=== PATIENT | female | born 1955 | race Caucasian/White ===

== ENCOUNTER → 2017-01-05 | Outpatient (CLI) | payer MEDICAID ==
[~2017-01-05] MED LIST: ACET50TA PO; ASPI81TA90 PO; ATIV0.5T3 PO; CALC-205 PO; CALC600T PO; CENTTAB47 PO; FISH1200 PO; FLUC10TA PO; GINKTAB PO; LEVO750T PO; LOPE2CA PO; NEUP480I2 SC; OMEP40CA2 PO; OXYB5TAB80 PO; PROC5TA PO; Q10 PO; VENL37TA PO; VITA10006 PO; VITA200T4 PO; VITATAB11 PO; ZOFR8TAB PO
[2017-01-05 09:52] LABS: ALBUMIN 3.8 GM/DL (3.2-5.2); ALBUMIN/GLOBULIN RATIO 1.06 (1.00-1.93); ALKALINE PHOSPHATASE 121 U/L (45-117); ALT/SGPT 24 U/L (12-78); ANION GAP 8 MEQ/L (8-16); AST/SGOT 19 U/L (15-37); BILIRUBIN,TOTAL 0.6 MG/DL (0.2-1.0); BLOOD UREA NITROGEN 15 MG/DL (7-18); CALCIUM LEVEL 8.9 MG/DL (8.8-10.2); CARBON DIOXIDE LEVEL 30 MEQ/L (21-32); CHLORIDE LEVEL 103 MEQ/L (98-107); CREATININE FOR GFR 0.99 MG/DL (0.55-1.02); FREE T4 1.28 NG/DL (0.76-1.46); GAMMA GLUTAMYLTRANSPEPTIDASE 13 U/L (5-55); GLOMERULAR FILTRATION RATE > 60.0 (>45); GLUCOSE, FASTING 83 MG/DL (80-110); POTASSIUM SERUM 4.2 MEQ/L (3.5-5.1); SODIUM LEVEL 141 MEQ/L (136-145); TOTAL PROTEIN 7.4 GM/DL (6.4-8.2)
--- NOTE | 2017-01-05 10:23 | REP ---
RIGHT UPPER QUADRANT ULTRASOUND: Real-time sonographic evaluation of the right upper quadrant performed. The gallbladder demonstrates no evidence of intraluminal sludge or calculi, wall thickening or pericholecystic fluid. There is no intrahepatic or extrahepatic biliary dilatation. The common hepatic duct measures 3 mm. The common bile duct is not well seen due to overlying bowel gas. Liver and pancreas demonstrate homogeneous echotexture with no gross mass. Right kidney demonstrates no hydronephrosis or nephrolithiasis with normal size at 9.7 cm in length. Abdominal aorta could not be visualized. IMPRESSION: Essentially negative right upper quadrant ultrasound, exam somewhat limited due to bowel gas. Signed by Romario Minor MD 01/05/2017 04:37 P
--- NOTE | 2017-01-05 10:52 | REP ---
ULTRASOUND THYROID: Real-time sonographic evaluation of the thyroid performed and compared to prior study of 12/20/2007. Right lobe measures 4.6 x 1.8 x 1.4 cm and left lobe 4.8 x 1.5 x 1.5 cm. Echotexture is diffusely heterogeneous. There are multiple variable sized nodules bilaterally. Largest on the right is in the lower third and there are two adjacent nodules which are complex cystic nodules, measuring 1.4 x 0.9 x 1.0 cm and 1.4 x 1.1 x 1.1 cm. In the lower left lobe, there is a complex cystic nodule measuring 1.2 x 0.9 x 2.5 cm. There is an increased cystic appearance compared to the prior study. IMPRESSION: Multiple bilateral nodules as discussed in detail above. The largest nodules are inferiorly located and have a complex cystic appearance. Signed by Romario Minor MD 01/05/2017 04:37 P
== END ==
LOC: M LAB 07:14 → M RAD 07:14
PROVIDERS: ATTEND Student in an Organized Health Care Education/Training Program
DX: R10.11 Right upper quadrant pain (principal); E04.2 Nontoxic multinodular goiter

== ENCOUNTER → 2017-02-19 | Outpatient (CLI) | payer MEDICAID ==
--- NOTE | 2017-02-19 11:58 | REPMRS ---
Patient History The patient states she had a clinical breast exam in 2015.The patient states she had a clinical breast exam in 2015.Patient is postmenopausal and has history of cancer in the right breast at age 57. Family history of unknown cancer in father at age 50 or over and breast cancer in mother at age 50 or over. Malignant localization of breast nodule of the right breast, September 19, 2012. Digital Mammo Screening Bilat: February 19, 2017 - Exam #: [id number] Bilateral CC and MLO view(s) were taken. Technologist: Katiana Hazel, Technologist Prior study comparison: February 10, 2016, bilateral digital mammo screening bilat performed at [facility]. February 08, 2015, bilateral digital mammo screening bilat performed at [facility]. FINDINGS: There are scattered fibroglandular densities. There is a fairly symmetric fibroglandular pattern in both breasts. There has been no interval development of masses, areas of architectural distortion or clusters of microcalcifications typical of malignancy. ASSESSMENT: BI-RADS/ACR category 2 mammogram. Benign finding(s). Recommendation Routine screening mammogram of both breasts in 1 year (for women over age 40). This mammogram was interpreted with the aid of an FDA-approved computer-aided dectection system. Electronically Signed By: Romario Minor MD 02/19/17 0551
== END ==
LOC: M RAD 10:36
PROVIDERS: ATTEND Internal Medicine Medical Oncology
DX: Z12.31 Encounter for screening mammogram for malignant neoplasm of breast (principal)

== ENCOUNTER → 2017-05-30 | Outpatient (CLI) | payer MEDICAID ==
[~2017-05-30] MED LIST changes: +ASPI1TAB PO; +CALC600T57 PO; +CRAN600T PO; +MULT1TAB10 PO; +OMEP20CA3 PO; +OXYB5TAB10 PO; +[UNRECOGNIZED DRUG - OTHER] PO
--- NOTE | 2017-05-31 09:37 | DEXA ---
AP SPINE L1 - L4 1.353 1.3 2.6 LT FEMUR TOTAL 0.817 -1.5 -0.5 RT FEMUR TOTAL 0.859 -1.2 -0.2 TOTAL BODY TOTAL OTHER DUAL FEMUR FRAX* ASSESSMENT Risk factors: Not performed. 10 year probability of fracture Major osteoporotic fracture % Hip fracture % COMMENTS: Normal bone densitometry of the spine. There is low bone density of the hips. The decreased density of the spine does not represent a significant change. The decreased density of the left hip does represent a significant change. The increased density of the right hip does represent a significant change. The density of the spine has increased 1.3% since the initial exam on 05/2013. The spine density has decreased 0.3% since the most recent exam on 05/2015. The density of the left hip has decreased 3.7% since the initial exam on 05/2013. The density of the left hip has decreased 2.9% since the most recent exam on 2014. The density of the right hip has decreased 0.3% since the initial exam on 2012. The density of the right hip has increased 4.4% since the most recent exam on 2014. FOLLOW-UP: Recommendation for the next bone density exam: 2 years. CHADD
== END ==
LOC: M WHC 09:59
PROVIDERS: ATTEND Internal Medicine Medical Oncology
DX: M85.88 Other specified disorders of bone density and structure, other site (principal); M85.851 Other specified disorders of bone density and structure, right thigh; M85.852 Other specified disorders of bone density and structure, left thigh; Z85.3 Personal history of malignant neoplasm of breast

== ENCOUNTER → 2017-06-08 | Outpatient (REF) | payer MEDICAID ==
[2017-06-08 16:40] LABS: MICROSCOPIC INDICATED? MAN YES (NO)
[2017-06-08 17:14] LABS: BACTERIA, URINE SMALL AMOUNT; HYALINE CAST, URINE NONE SEEN /lpf (0-1); MICROSCOPIC EXAM PERFORMED; SQUAMOUS EPITHELIAL CELL URINE SMALL AMOUNT /hpf (SMALL AMT); WBC, URINE 20-30 /hpf (0-3)
== END ==
LOC: M SFHCPLAZ 16:30
PROVIDERS: ATTEND Obstetrics & Gynecology
DX: N39.0 Urinary tract infection, site not specified (principal)

== ENCOUNTER → 2017-06-11 | Outpatient (CLI) | payer MEDICAID ==
--- NOTE | 2017-06-11 17:06 | REP ---
Right humerus two views : There is no fracture or dislocation. Mineralization and joint spaces are normal. There are no calcifications or foreign bodies. Impression: Negative right humerus . Signed by Romario Higgins MD 06/11/2017 04:58 P
--- NOTE | 2017-06-11 17:12 | REP ---
Right shoulder series: Three views. History: Atraumatic right arm numbness. Findings: The right glenohumeral and acromioclavicular joints are normally aligned. There is subcortical cyst formation in the humeral head. Minimal AC joint hypertrophy is seen. Periarticular soft tissues are unremarkable. No bony destructive lesion is seen. Impression: Minimal degenerative and osteoarthritic changes. Signed by Bartolo Vargas MD 06/11/2017 08:01 P
== END ==
LOC: M RAD 16:26
PROVIDERS: ATTEND Internal Medicine Medical Oncology
DX: R20.9 Unspecified disturbances of skin sensation (principal)

== ENCOUNTER → 2017-08-16 | Outpatient (REF) | payer MEDICAID | LOC: M SFHCWAGY 14:19 | PROVIDERS: ATTEND Nurse Practitioner Family | DX: Z12.4 Encounter for screening for malignant neoplasm of cervix (principal) ==

== ENCOUNTER → 2017-08-16 | Outpatient (CLI) | payer MEDICAID ==
--- NOTE | 2017-08-16 16:54 | REP ---
Ultrasonography of the soft tissues near a hernia scar in the region of the pubic symphysis to the right of midline. The patient complains of a tender to 11/14 year mass just under the area of scar. By ultrasound. There is no soft tissue mass or focal fluid collection. To lymph nodes are noted in the soft tissues near the surgical scar, 1. Fluid node measures 0.7 x 0.6 x 0.4 cm. The other lymph node measures 1.3 x 0.7 x 0.4 cm. These lymph nodes are normal size. Impression: Two lymph nodes are identified in relation to the hernia scar. There is no mass, cyst or fluid collection. Signed by Romario Higgins MD 08/16/2017 04:45 P
== END ==
LOC: M WHC 14:20
PROVIDERS: ATTEND Nurse Practitioner Family
DX: R19.03 Right lower quadrant abdominal swelling, mass and lump (principal)

== ENCOUNTER → 2017-10-02 | Outpatient (REF) | payer MEDICAID ==
[2017-10-02 13:36] LABS: APPEARANCE, URINE HAZY (CLEAR); BACTERIA, URINE AUTO NEGATIVE (NEGATIVE); BILIRUBIN, URINE AUTO NEGATIVE (NEGATIVE); BLOOD, URINE BLOOD NEGATIVE (NEGATIVE); COLOR, URINE YELLOW (YELLOW); GLUCOSE, URINE (UA) AUTO NEGATIVE (NEGATIVE); KETONE, URINE AUTO NEGATIVE (NEGATIVE); LEUKOCYTE ESTERASE, URINE AUTO 2+ (NEGATIVE); NITRITE, URINE AUTO NEGATIVE (NEGATIVE); PROTEIN, URINE AUTO NEGATIVE (NEGATIVE); RBC, URINE AUTO 1 /HPF (0-3); SPECIFIC GRAVITY URINE AUTO 1.019 (1.002-1.035); SQUAMOUS EPITHELIAL CELL UR AU 1 /HPF (0-6); UROBILINOGEN, URINE AUTO 0.2 mg/dL (0.0-2.0); WBC, URINE AUTO 2 /HPF (0-3)
== END ==
LOC: M SMT 12:55
DX: R39.15 Urgency of urination (principal)

== ENCOUNTER → 2017-10-04 | Outpatient (CLI) | payer MEDICAID | LOC: M SMT 09:47 | DX: N39.46 Mixed incontinence (principal) | CPT/HCPCS: 76770 ==

== ENCOUNTER → 2018-02-20 | Outpatient (CLI) | payer MEDICAID | LOC: M WHC 11:34 | DX: Z12.31 Encounter for screening mammogram for malignant neoplasm of breast (principal) | CPT/HCPCS: 77067 ==

== ENCOUNTER → 2018-03-25 | Outpatient (CLI) | payer MEDICAID ==
[~2018-03-25] MED LIST changes: -ACET50TA PO; -ASPI1TAB PO; -ASPI81TA90 PO; -ATIV0.5T3 PO; -CALC-205 PO; -CALC600T PO; -CALC600T57 PO; -CENTTAB47 PO; -CRAN600T PO; -FISH1200 PO; -FLUC10TA PO; -GINKTAB PO; -LEVO750T PO; +LIDOCAINE 1% MDV 20ML VIAL As Ordered; -LOPE2CA PO; -MULT1TAB10 PO; -NEUP480I2 SC; -OMEP20CA3 PO; -OMEP40CA2 PO; -OXYB5TAB10 PO; -OXYB5TAB80 PO; -PROC5TA PO; -Q10 PO; -VENL37TA PO; -VITA10006 PO; -VITA200T4 PO; -VITATAB11 PO; -ZOFR8TAB PO; -[UNRECOGNIZED DRUG - OTHER] PO
== END ==
LOC: M RADPRO 12:08
DX: E04.2 Nontoxic multinodular goiter (principal); Z79.82 Long term (current) use of aspirin; Z79.899 Other long term (current) drug therapy
CPT/HCPCS: 10022

== ENCOUNTER → 2018-06-14 | Outpatient (CLI) | payer MEDICAID | LOC: M RAD 12:15 | DX: M21.612 Bunion of left foot (principal); M77.32 Calcaneal spur, left foot; M19.072 Primary osteoarthritis, left ankle and foot ==

== ENCOUNTER → 2018-07-19 | Outpatient (CLI) | payer MEDICAID | LOC: M RAD 10:52 | DX: Z12.2 Encounter for screening for malignant neoplasm of respiratory organs (principal); Z87.891 Personal history of nicotine dependence | CPT/HCPCS: G0297 ==

== ENCOUNTER → 2018-07-22 | Outpatient (CLI) | payer MEDICAID | LOC: M RAD 16:44 | DX: M51.36 Other intervertebral disc degeneration, lumbar region (principal); M19.012 Primary osteoarthritis, left shoulder; M54.5 Low back pain | CPT/HCPCS: 72072 ==

== ENCOUNTER → 2018-12-23 | Outpatient (CLI) | payer MEDICAID ==
[~2018-12-23] MED LIST changes: +ANAS1TAB2 PO; +ASPI81TA26 PO; +ASPI81TA90 PO; +ATIV0.5T3 PO; +CALC-205 PO; +CALC600T PO; +CALC600T57 PO; +CENTTAB47 PO; +CRAN600T PO; +FISH1200 PO; +FLUC10TA PO; +GINKTAB PO; +LEVO750T PO; -LIDOCAINE 1% MDV 20ML VIAL As Ordered; +LOPE2CA PO; +MAGN400C PO; +MAPA500T17 PO; +MULT1TAB10 PO; +NEUP480I2 SC; +OMEP20CA3 PO; +OMEP40CA2 PO; +ONDA-227 PO; +OXYB5TAB10 PO; +OXYB5TAB80 PO; +PROC5TA PO; +Q10 PO; +VENL37TA PO; +VITA10006 PO; +VITA200T4 PO; +VITATAB11 PO; +[UNRECOGNIZED DRUG - OTHER] PO
[2018-12-23 13:58] LABS: FREE T4 1.21 NG/DL (0.76-1.46); THYROID STIMULATING HORMONE 1.03 uIU/ML (0.358-3.740)
== END ==
LOC: M LAB 12:50
PROVIDERS: ATTEND Obstetrics & Gynecology
DX: E04.2 Nontoxic multinodular goiter (principal)

== ENCOUNTER → 2019-02-20 | Outpatient (CLI) | payer MEDICAID ==
--- NOTE | 2019-02-20 13:42 | REPMRS ---
Patient History The patient states she had a clinical breast exam in 02/2019. Patient is postmenopausal, has history of cancer in the right breast at age 57, had previous chest radiation therapy at age 57, and had previous chemotherapy at age 57. Family history of breast cancer at age 68 in mother. Malignant localization of breast nodule of the right breast, September 19, 2012. Taking tamoxifen for 6 years. Digital Woman Screen Mammo: February 20, 2019 - Exam #: [id number] Bilateral CC and MLO view(s) were taken. Technologist: Linda Quinteros, Technologist Prior study comparison: February 20, 2018, bilateral digital woman screen mammo performed at [facility]. February 19, 2017, bilateral digital mammo screening bilat, performed at [facility]. February 10, 2016, bilateral digital mammo screening bilat, performed at [facility]. FINDINGS: There are scattered fibroglandular densities. Stable well-circumscribed 5 mm nodule in the upper outer quadrant on the left unchanged from the 08/29/2017 prior study. There are stable post treatment changes in the right breast. There has been no change in the appearance of the mammogram from the prior studies. There is a mild amount of scattered fibroglandular density which is fairly symmetric. There is no interval development of dominant mass, architectural distortion, or clustered microcalcification suggestive of malignancy. 3-D tomosynthesis shows no additional findings. Assessment: BI-RADS/ACR category 2 mammogram. Benign Findings. Recommendation Routine screening mammogram of both breasts in 1 year (for women over age 40). This mammogram was interpreted with the aid of an FDA-approved computer-aided dectection system. Electronically Signed By: Jose A Vargas MD 02/20/19 [id number]
== END ==
LOC: M WHC 11:20
PROVIDERS: ATTEND Nurse Practitioner Family
DX: Z12.31 Encounter for screening mammogram for malignant neoplasm of breast (principal)

== ENCOUNTER → 2019-02-20 | Outpatient (REF) | payer MEDICAID ==
[2019-02-22 15:14] LABS: HPV HYBRID CAPTURE II Negative (Negative)
== END ==
LOC: M SFHCWAGY 13:15
PROVIDERS: ATTEND Nurse Practitioner Family
DX: Z12.4 Encounter for screening for malignant neoplasm of cervix (principal)

== ENCOUNTER → 2019-04-09 | Outpatient (CLI) | payer MEDICAID ==
[~2019-04-09] MED LIST changes: +BACL1TAB8 GT; +CRANPOW2 XX; +MULTTAB4 PO; -OMEP20CA3 PO; +OMEP20CA4 PO
[2019-04-09 15:00] LABS: APPEARANCE, URINE HAZY (CLEAR); BACTERIA, URINE AUTO NEGATIVE (NEGATIVE); BILIRUBIN, URINE AUTO NEGATIVE (NEGATIVE); BLOOD, URINE BLOOD NEGATIVE (NEGATIVE); COLOR, URINE YELLOW (YELLOW); GLUCOSE, URINE (UA) AUTO NEGATIVE (NEGATIVE); KETONE, URINE AUTO NEGATIVE (NEGATIVE); LEUKOCYTE ESTERASE, URINE AUTO 3+ (NEGATIVE); NITRITE, URINE AUTO NEGATIVE (NEGATIVE); PROTEIN, URINE AUTO NEGATIVE (NEGATIVE); RBC, URINE AUTO 5 /HPF (0-3); SPECIFIC GRAVITY URINE AUTO 1.009 (1.002-1.035); SQUAMOUS EPITHELIAL CELL UR AU 2 /HPF (0-6); UROBILINOGEN, URINE AUTO 0.2 mg/dL (0.0-2.0); WBC, URINE AUTO 37 /HPF (0-3)
[2019-04-09 15:18] LABS: BLOOD UREA NITROGEN 15 MG/DL (7-18); CARBON DIOXIDE LEVEL 30 MEQ/L (21-32); CHLORIDE LEVEL 106 MEQ/L (98-107); CREATININE FOR GFR 0.97 MG/DL (0.55-1.30); GLOMERULAR FILTRATION RATE > 60.0 (>45); GLUCOSE, FASTING 97 MG/DL (70-100); POTASSIUM SERUM 5.1 MEQ/L (3.5-5.1); SODIUM LEVEL 142 MEQ/L (136-145)
== END ==
LOC: M LAB 14:10
PROVIDERS: ATTEND Obstetrics & Gynecology
DX: R30.0 Dysuria (principal)

== ENCOUNTER → 2019-04-22 | Outpatient (CLI) | payer MEDICAID ==
[~2019-04-22] MED LIST changes: +ISOVUE-370 76% 100ML VIAL (Q9967) As Ordered ONE
--- NOTE | 2019-04-22 11:41 | REP ---
REASON FOR EXAM: Microscopic hematuria. COMPARISON: Noncontrast enhanced examination 01/27/2013. CONTRAST: 100 mL Isovue 370. Patchy opacity seen in the left lung base has resolved. There are no other changes. There are no pleural or pericardial effusions. The precontrast enhanced portion of the examination again shows hepatic and splenic densities to be within normal limits. Small choleliths have developed since the last examination. There is no nephroureterolithiasis, hydronephrosis, or hydroureter. There are no urinary bladder calculi. There are bilateral pelvic phleboliths status quo. Contrast enhanced portion of the examination shows the liver and spleen to be within normal limits. The pancreas and adrenal glands are unremarkable. The left kidney is within normal limits. There is a tiny low density structure in the superior pole of the right kidney consistent with centimeter-sized cyst. The abdominal aorta and para-aortic regions are within normal limits. The bowel loops and their mesenteries are within normal limits. There is no free fluid or free air. There is no evidence of intra-abdominal mass or adenopathy. CT PELVIS: The pelvis bowel loops and their mesenteries are within normal limits. There is no evidence of a mass or adenopathy. There has been previous bilateral inguinal herniorrhaphy, which has been performed since the prior CT. Surgical clips are seen in the inguinal regions with a small amount of soft tissue consistent with cicatrix formation. There is no free fluid or free air in the pelvis. Bone window technique through the examination shows no significant change in the appearance of the osseous structures. Note is again made of an incidental L4 vertebral body hemangioma, which is unchanged. IMPRESSION: 1. Today's exam shows evidence of a potential tiny gravel-like calculi in the gallbladder. This findings can be confirmed with gallbladder ultrasonography if clinically relevant. 2. Small right renal cysts. 3. No evidence of acute intra-abdominal or intrapelvic disease. Findings as described above. Electronically Signed by Sudhakar Golden DO 04/22/2019 12:02 P
== END ==
LOC: M RAD 07:34
PROVIDERS: ATTEND Obstetrics & Gynecology
DX: R31.29 Other microscopic hematuria (principal)
CPT/HCPCS: 74178; Q9967

== ENCOUNTER → 2019-04-23 | Outpatient (REF) | payer MEDICAID ==
[~2019-04-23] MED LIST changes: -ISOVUE-370 76% 100ML VIAL (Q9967) As Ordered ONE; +OMEP1CAP73 PO; -OMEP20CA4 PO
[2019-04-23 19:35] LABS: APPEARANCE, URINE CLEAR (CLEAR); BACTERIA, URINE AUTO NEGATIVE (NEGATIVE); BILIRUBIN, URINE AUTO NEGATIVE (NEGATIVE); BLOOD, URINE BLOOD NEGATIVE (NEGATIVE); COLOR, URINE YELLOW (YELLOW); GLUCOSE, URINE (UA) AUTO NEGATIVE (NEGATIVE); KETONE, URINE AUTO NEGATIVE (NEGATIVE); LEUKOCYTE ESTERASE, URINE AUTO 3+ (NEGATIVE); MUCUS, URINE SMALL (NEGATIVE); NITRITE, URINE AUTO NEGATIVE (NEGATIVE); PROTEIN, URINE AUTO NEGATIVE (NEGATIVE); RBC, URINE AUTO 0 /HPF (0-3); SPECIFIC GRAVITY URINE AUTO 1.012 (1.002-1.035); SQUAMOUS EPITHELIAL CELL UR AU 2 /HPF (0-6); UROBILINOGEN, URINE AUTO 0.2 mg/dL (0.0-2.0); WBC, URINE AUTO 2 /HPF (0-3)
== END ==
LOC: M SMT 17:05
PROVIDERS: ATTEND Nurse Practitioner Women's Health
DX: R31.29 Other microscopic hematuria (principal)

== ENCOUNTER → 2019-04-30 | Outpatient (REF) | payer MEDICAID ==
[~2019-04-30] MED LIST changes: -OMEP1CAP73 PO; +OMEP20CA4 PO
== END ==
LOC: M SMT 13:06
PROVIDERS: ATTEND Urology
DX: N39.46 Mixed incontinence (principal)

== ENCOUNTER → 2019-07-01 | Outpatient (CLI) | payer MEDICAID ==
[2019-07-01 17:47] LABS: BLOOD UREA NITROGEN 14 MG/DL (7-18); CALCIUM LEVEL 9.9 MG/DL (8.8-10.2); CARBON DIOXIDE LEVEL 29 MEQ/L (21-32); CHLORIDE LEVEL 104 MEQ/L (98-107); CHOLESTEROL LEVEL 221 MG/DL (<200); CHOLESTEROL RISK RATIO 3.157 (<5); CREATININE FOR GFR 0.98 MG/DL (0.55-1.30); FREE T4 1.11 NG/DL (0.76-1.46); GLOMERULAR FILTRATION RATE > 60.0 (>45); GLUCOSE, FASTING 108 MG/DL (70-100); HDL CHOLESTEROL 70 MG/DL (>40); LDL CHOLESTEROL 109 MG/DL (<100); NON-HDL-C 151 MG/DL; POTASSIUM SERUM 4.9 MEQ/L (3.5-5.1); SODIUM LEVEL 140 MEQ/L (136-145); TRIGLYCERIDES LEVEL 210 MG/DL (<150)
== END ==
LOC: M LAB 15:46
PROVIDERS: ATTEND Obstetrics & Gynecology
DX: E04.2 Nontoxic multinodular goiter (principal); Z13.1 Encounter for screening for diabetes mellitus; Z13.220 Encounter for screening for lipoid disorders

== ENCOUNTER → 2020-01-09 | Outpatient (REF) | payer MEDICAID ==
[~2020-01-09] MED LIST changes: +OMEP1CAP73 PO; -OMEP20CA4 PO
[2020-01-09 16:04] LABS: FREE T4 1.23 NG/DL (0.76-1.46)
== END ==
LOC: M SFHCPLAZ 14:15
DX: E04.2 Nontoxic multinodular goiter (principal)

== ENCOUNTER → 2020-02-27 | Outpatient (CLI) | payer MEDICAID ==
[~2020-02-27] MED LIST changes: +MULT1TAB74 PO; -MULTTAB4 PO
--- NOTE | 2020-03-08 15:27 | DEXA ---
AP SPINE L1 - L4 1.313 1.0 2.5 LT FEMUR TOTAL 0.813 -1.5 -0.4 LT NECK 0.833 -1.5 0.0 RT FEMUR TOTAL 0.849 -1.3 -0.1 RT NECK 0.821 -1.6 -0.1 TOTAL BODY TOTAL OTHER COMMENTS: Normal bone densitometry of the spine. There is low bone density of the hips. The decreased density of the spine does represent a significant change. The decreased density of the left hip does not represent a significant change. The decreased density of the right hip does not represent a significant change. The density of the spine has decreased 1.7% since the initial exam on 06/02/2013. The decreased 3.0% since the most recent exam on 05/30/2017. The density of the left hip has decreased 4.1% since the initial exam on 06/02/2013. The density of the left hip has decreased 0.5% since the most recent exam on 05/30/2017. The density of the right hip has decreased 1.5% since the initial exam on 06/02/2013. The density of the right hip has decreased 1.2% since the most recent exam on 05/30/2017. FOLLOW-UP: Recommendation for the next bone density exam: 2 years. CHADD
== END ==
LOC: M WHC 12:51
PROVIDERS: ATTEND Internal Medicine Hematology & Oncology
DX: C50.911 Malignant neoplasm of unspecified site of right female breast (principal); M85.851 Other specified disorders of bone density and structure, right thigh; M85.852 Other specified disorders of bone density and structure, left thigh

== ENCOUNTER → 2020-02-27 | Outpatient (CLI) | payer MEDICAID ==
[2020-02-27 16:57] LABS: BASO # 0.1 10^3/uL (0.0-0.2); EOS # 0.1 10^3/uL (0.0-0.5); EOS % 2.6 % (0.0-3.0); HEMATOCRIT 40.1 % (36.0-47.0); HEMOGLOBIN 13.4 g/dl (12.0-15.5); LYMPH # 1.4 10^3/uL (1.5-5.0); LYMPH % 28.9 % (24.0-44.0); MEAN CORPUSCULAR HEMOGLOBIN 30.9 pg (27.0-33.0); MEAN CORPUSCULAR HGB CONC 33.4 g/dl (32.0-36.5); MEAN CORPUSCULAR VOLUME 92.6 fl (80.0-96.0); MONO # 0.5 10^3/uL (0.0-0.8); MONO % 9.2 % (0.0-5.0); NEUTROPHILS # 2.9 10^3/uL (1.5-8.5); NEUTROPHILS % 58.1 % (36.0-66.0); PLATELET COUNT, AUTOMATED 214 10^3/uL (150-450); RED BLOOD COUNT 4.33 10^6/uL (4.00-5.40)
[2020-02-27 17:12] LABS: ALT/SGPT 34 U/L (12-78); BILIRUBIN,TOTAL 0.5 MG/DL (0.2-1.0); BLOOD UREA NITROGEN 16 MG/DL (7-18); CALCIUM LEVEL 9.6 MG/DL (8.8-10.2); CARBON DIOXIDE LEVEL 29 MEQ/L (21-32); CHLORIDE LEVEL 107 MEQ/L (98-107); CREATININE FOR GFR 0.94 MG/DL (0.55-1.30); FERRITIN 158 NG/ML (8-252); GLOMERULAR FILTRATION RATE > 60.0 (>45); GLUCOSE, FASTING 104 MG/DL (70-100); IRON (FE) 105 UG/DL (50-170); POTASSIUM SERUM 5.1 MEQ/L (3.5-5.1); SODIUM LEVEL 141 MEQ/L (136-145); TOTAL IRON BINDING CAPACITY 276 UG/DL (250-450); TOTAL PROTEIN 7.4 GM/DL (6.4-8.2)
[2020-02-27 19:08] LABS: FOLATE > 24.0 NG/ML; VITAMIN B12 LEVEL 1473 PG/ML
[2020-02-27 19:18] LABS: TOTAL 25(OH) VITAMIN D 37.6 NG/ML (30.0-100.0)
== END ==
LOC: M PLALAB 13:14
PROVIDERS: ATTEND Internal Medicine Hematology & Oncology
DX: C50.911 Malignant neoplasm of unspecified site of right female breast (principal)

== ENCOUNTER → 2020-03-02 | Outpatient (CLI) | payer MEDICAID ==
[~2020-03-02] MED LIST changes: +PROHANCE 279.3MG/ML 15ML VIAL As Ordered ONE; +PROHANCE 279.3MG/ML 5ML VIAL As Ordered ONE
--- NOTE | 2020-03-02 11:51 | REP ---
MRI ABDOMEN WITH AND WITHOUT CONTRAST: COMPARISON: CT 04/22/2019 TECHNIQUE: Multiple sequences obtained in the axial and coronal planes prior to and following the intravenous administration of 16 mL ProHance. There is a subcentimeter cyst in the right lobe of the liver. No enhancing liver mass is seen. The spleen is normal size with no intrinsic abnormality. The adrenal glands are normal. The pancreas demonstrates a somewhat ill-defined heterogeneously enhancing mass in the region of the pancreatic body just to the right of midline, just anterior to the bifurcation of the celiac artery. It measures approximately 2.0 x 1.6 cm. This causes obstruction of the pancreatic duct, with moderate dilatation of the pancreatic duct in the more distal body and tail of the pancreas. Maximum diameter of the pancreatic duct is 8 mm. No abnormality is seen in the pancreatic head. Common bile duct is normal in caliber. Gallbladder is grossly unremarkable. There is a cyst in the upper pole of the right kidney with no internal enhancement, measuring approximately 1.3 cm in diameter. No adenopathy or free fluid is seen in the abdomen. IMPRESSION: Suspicious ill-defined heterogeneously enhancing mass in the body of the pancreas just to the right of midline likely representing carcinoma. It measures 2.0 x 1.6 cm. This causes obstruction of the pancreatic duct with moderate dilatation of the duct, maximum diameter is 8 mm. The mass is located just anterior to the bifurcation of the celiac artery. No adenopathy is seen. Electronically Signed by Romario Minor MD 03/03/2020 04:36 P
--- NOTE | 2020-03-03 14:27 | MEDONCTEEN ---
Date/Time of Encounter Date of Encounter: Mar 03, 2020 Time of Encounter: 14:00 Telephone Encounter I kindly refer Ms. Worthy for workup for her newly found 2.0 x 1.6 cm pancre atic body mass. MRI was performed 03/02/2020. The nodule is causing some obstruction of the pancreatic duct with mild dilatation. No evidence of lymph node involvement noted and patient feels perfectly well This was done for screening test This was found on MRI with and without contrast performed because she has PALB2 heterozygous mutation. Patient has had breast cancer diagnosed in 2012 and is currently on endocrine therapy with no evidence recurrence. This case seems quite amenable for surgical cure with a Whipple based on initial imaging. Please see my note from earlier this month Dr. Ophelia Rdz is going to take over the care of this patient. She is aware of the new finding and last saw this patient in 2018 JN RUIZ MD Mar 03, 2020 14:27
--- NOTE | 2020-03-04 13:39 | MEDONCTEEN ---
Date/Time of Encounter Date of Encounter: Mar 04, 2020 Time of Encounter: 13:30 Telephone Encounter Prolonged discussion with patient today Reviewed MRI scans with patient New tumor in the body the pancreas with compression of the duct noted Patient understands this is more likely than not a cancer Patient understands resection is the only chance for long-term survival Patient understands that my feeling is that I would even proceed with a Whipple surgery without a biopsy given the findings on the MRI I do not want delay in care Patient understands to do cold and 19 that everything is being delayed This tumor is amenable to primary resection Neoadjuvant therapy should not be consideration at this time An EUS with biopsy is performed no objection as long as it is done promptly I want to be honest year, I have patient with esophageal adenocarcinoma which I personally asked for an EUS and personally placed consult. The patient has had a consult placed in January 2020. The appointment is for April 17 for her EUS. This was supposed to be done before neoadjuvant chemoradiotherapy I told the patient that I will refer her out to [place] if need be patient feels comfortable with going to [facility]. I'm quite concerned with delaying care The patient's CA-19-9 is elevated at 53 with the upper limit or normal at our reference lab being [address] Ophelia Rdz will take over the care of this patient beginning after March 19 as I am the [facility] and lives and work in [facility]. JN RUIZ MD Mar 04, 2020 13:39
== END ==
LOC: M RAD 08:38
PROVIDERS: ATTEND Internal Medicine Hematology & Oncology
DX: C50.911 Malignant neoplasm of unspecified site of right female breast (principal)
CPT/HCPCS: 74183; A9576

== ENCOUNTER → 2020-04-21 | Outpatient (CLI) | payer MEDICARE, MEDICAID ==
[~2020-04-21] MED LIST changes: +AMOX500C PO; +BACT800T5 PO; +CALC1TAB91 PO; +CENTCHW4 PO; +CHOLPOW PO; +CRAN400C PO; +CVS500CA5 PO; +FAMO40TA3 PO; +ISOVUE-300 61% 50ML VIAL ONE; +LIDOCAINE 1% MDV 20ML VIAL ONE; +LOPE2CAP; +LOPE2CAP PO; +MED REC COMMENT; +MIDAZOLAM INJ 2MG/2ML VIAL (J2250 PER 1MG) ONE; +OLAN10TA2 PO; +ONDA8TAB10 PO; +PROC10TA4 PO; -PROHANCE 279.3MG/ML 15ML VIAL As Ordered ONE; -PROHANCE 279.3MG/ML 5ML VIAL As Ordered ONE; +PROT40IN4 IV; +[UNRECOGNIZED DRUG - CODE] IV; +ceFAZolin 1GM VIAL (J0690 PER 500MG) ONE; +diphenhydrAMINE 50MG/ML VIAL (J1200) ONE; +fentaNYL 100 MCG/2 ML INJECTION (J3010) ONE
--- NOTE | 2020-05-14 11:25 | POST-OPPD ---
Postoperative Procedure Note Date Of Procedure: Apr 21, 2020 Time Of Procedure: 16:00 IR Ultrasound and fluoroscopy-guided port placement. IR Ultrasound of the neck. IR Moderate sedation. Clinical information: Pancreatic cancer Physician: Dr. Lemon. Procedure: The patient was advised of the benefits, risks, and alternatives of the procedure and informed consent was obtained. A time-out was performed with verification of the patient's name, MRN, site of procedure and type of procedure to be performed. The patient was positioned in the supine position on the angiographic table. The site was prepped and draped in the usual sterile fashion. Moderate sedation was performed by the physician including the presence of an independent trained observer who assisted and monitored the patient's level of consciousness and physiologic status. Following the administration of fentanyl and Versed , the physician spent 45 minutes of continuous face to face time with the patient. Ultrasound of the neck reveals a patent and compressible left internal jugular vein. A cyber incident analyst radiograph reveals no gross abnormality. The neck and anterior chest wall were anesthetized with lidocaine. The left internal jugular vein was accessed using a microintroducer needle under ultrasound guidance, via a lateral approach. An 018 wire was advanced into the superior vena cava, the needle was removed and a microsheath was placed. An Amplatz wire was then passed into the inferior vena cava. An incision at the internal jugular vein access site and anterior chest wall were made using a scalpel. An incision was made at the anterior chest wall. A small pocket was created using a combination of blunt and sharp dissection. A tunneling device was then used to pass the catheter from the pocket to the neck puncture site. An 8- Yi Angio restOpolis Smart power port was then positioned in the pocket. The catheter was then measured and cut. The introducer sheath was exchanged for a peel-away sheath. The catheter was passed through the peel-away sheath into the internal jugular vein and the peel-away sheath was removed. The port tip was positioned at the cavoatrial junction. The port was then accessed with a Yi needle. The port flushes and aspirates well. The puncture site in the neck was closed. The chest wall incision was then closed with 2-0 Vicryl and 4-0 Monocryl. Glue and Steri- Strips were applied. A sterile dressing was then applied. The patient tolerated the procedure well and was returned to the PRU in stable condition. Estimated blood loss: <5 ml. Complications: None. Conclusion: 1. Successful placement of an 8-Yi Angio dynamics Smart power port via the Left internal jugular vein. The port is ready for immediate use. 2. Patient to follow up in IR clinic in 2 weeks. Thank you for this referral. RASHMI LEMON MD May 14, 2020 11:25
[2020-05-24 14:17] LABS: BASO % 0.6 % (0.0-1.0); EOS # 0.1 10^3/uL (0.0-0.5); EOS % 2.6 % (0.0-3.0); HEMOGLOBIN 14.5 g/dl (12.0-15.5); LYMPH # 1.5 10^3/uL (1.5-5.0); MEAN CORPUSCULAR HEMOGLOBIN 31.3 pg (27.0-33.0); MEAN CORPUSCULAR HGB CONC 33.7 g/dl (32.0-36.5); MEAN CORPUSCULAR VOLUME 92.7 fl (80.0-96.0); MONO # 0.4 10^3/uL (0.0-0.8); MONO % 8.9 % (0.0-5.0); NEUTROPHILS # 2.8 10^3/uL (1.5-8.5); NEUTROPHILS % 56.7 % (36.0-66.0); PLATELET COUNT, AUTOMATED 230 10^3/uL (150-450); RED BLOOD COUNT 4.64 10^6/uL (4.00-5.40); WHITE BLOOD COUNT 4.9 10^3/uL (4.0-10.0)
[2020-05-24 14:21] LABS: INR 1.08; PARTIAL THROMBOPLASTIN TIME 35.2 SECONDS (25.0-38.4); PROTHROMBIN TIME 14.2 SECONDS (11.8-14.0)
[2020-06-30 13:47] LABS: ALBUMIN 4.2 GM/DL (3.2-5.2); BILIRUBIN,TOTAL 0.6 MG/DL (0.2-1.0); CA19-9 TUMOR MARKER,CARBOHYDRA 85.6 U/ML (<35.0); CALCIUM LEVEL 9.6 MG/DL (8.8-10.2); CREATININE FOR GFR 1.06 MG/DL (0.55-1.30); GLOMERULAR FILTRATION RATE 55.4 (>45); POTASSIUM SERUM 4.6 MEQ/L (3.5-5.1); TOTAL PROTEIN 7.4 GM/DL (6.4-8.2)
== END ==
LOC: M IRPRO 12:20 → M RAD 12:20
PROVIDERS: ATTEND Internal Medicine Medical Oncology
DX: C25.9 Malignant neoplasm of pancreas, unspecified (principal); Z85.3 Personal history of malignant neoplasm of breast
CPT/HCPCS: 36415; 36561; 80053; 85025; 85610; 85730; 86301; 99152; 99153; C1769; C1788; C1894; J0690; J1200; J1642; J1644; J2250; J3010; Q9967

== ENCOUNTER → 2020-05-11 | Outpatient (POV) | payer MEDICAID ==
[~2020-05-11] MED LIST changes: -ISOVUE-300 61% 50ML VIAL ONE; -LIDOCAINE 1% MDV 20ML VIAL ONE; -MIDAZOLAM INJ 2MG/2ML VIAL (J2250 PER 1MG) ONE; -ceFAZolin 1GM VIAL (J0690 PER 500MG) ONE; -diphenhydrAMINE 50MG/ML VIAL (J1200) ONE; -fentaNYL 100 MCG/2 ML INJECTION (J3010) ONE
--- NOTE | 2020-05-12 14:29 | IRPN ---
[facility] IR Progress Note IR Progress Note DATE: May 11, 2020 Patient agreed to this telephone follow-up. Duration of call 5 minutes. Status post port placement. Patient states no pain or discharge at the port site. Port being used without any problems. Patient sent images of the port site. Port site appears to be healing well. No swelling or discharge. IMPRESSION: Doing well status post port placement. No further follow-up scheduled unless initiated by patient and/or referring provider. Thank you for this referral Allergies Coded Allergies: No Known Allergies (Unverified , 01/07/19) RASHMI CARLSON MD May 12, 2020 14:29
== END ==
LOC: M TMIRPOV 08:54
PROVIDERS: ATTEND Radiology Diagnostic Radiology
DX: Z45.2 Encounter for adjustment and management of vascular access device (principal)

== ENCOUNTER → 2020-05-14 | Outpatient (CLI) | payer MEDICARE, MEDICAID ==
--- NOTE | 2020-06-25 10:01 | REP ---
LOW-DOSE LUNG SCREENING CT CLINICAL: History of nicotine dependence. COMPARISON: 07/19/2018. TECHNIQUE: Axial noncontrast images from the thoracic inlet to the upper abdomen using low-dose lung screening technique. FINDINGS: There is a relatively new 10 mm nonsolid ground-glass density in the posterior right upper lobe (Image 32), which is a new finding. The lung mello are otherwise clear. No further consolidation, nodule, or mass. No effusion. No pneumothorax. Tracheobronchial tree is patent. Mediastinum is grossly stable. IMPRESSION: A 10-mm ground-glass nonsolid density in the posterior right upper lobe. Lung- RADS Category 2. Management and recommendations include 12 month low-dose CT evaluation. MTDD
== END ==
LOC: M RAD 10:50
PROVIDERS: ATTEND Obstetrics & Gynecology
DX: Z12.2 Encounter for screening for malignant neoplasm of respiratory organs (principal); R91.8 Other nonspecific abnormal finding of lung field; Z87.891 Personal history of nicotine dependence

== ENCOUNTER → 2020-06-01 | Outpatient (CLI) | payer MEDICARE, MEDICAID ==
--- NOTE | 2020-06-01 13:10 | REPMRS ---
Patient History The patient states she has not had a clinical breast exam in over a year. Patient is postmenopausal, has history of pancreatic cancer at age 64, has history of cancer in the right breast at age 57, had previous chest radiation therapy at age 57, and had previous chemotherapy at age 57. Family history of breast cancer at age 68 in mother. Malignant localization of breast nodule of the right breast, September 19, 2012. Took tamoxifen for 6 years. 3D TOMOSYNTHESIS WAS PERFORMED. [employer]. Digital Woman Screen Mammo: June 01, 2020 - Exam #: [id number] Bilateral CC and MLO view(s) were taken. Technologist: Katiana Hazel, Technologist Prior study comparison: February 20, 2019, bilateral digital woman screen mammo performed at [facility]. February 20, 2018, bilateral digital woman screen mammo performed at [facility]. FINDINGS: There are scattered fibroglandular densities. There is a fairly symmetric fibroglandular pattern in both breasts. There has been no interval development of masses, areas of architectural distortion or clusters of microcalcifications typical of malignancy. There is stable post surgical change in the right breast. No significant changes when compared with prior studies. Assessment: BI-RADS/ACR category 2 mammogram. Benign Findings. Recommendation Routine screening mammogram of both breasts in 1 year (for women over age 40). This mammogram was interpreted with the aid of an FDA-approved computer-aided dectection system. Electronically Signed By: Romario Minor MD 06/01/20 0700
== END ==
LOC: M WHC 12:21
PROVIDERS: ATTEND Internal Medicine Medical Oncology
DX: Z12.31 Encounter for screening mammogram for malignant neoplasm of breast (principal); Z80.3 Family history of malignant neoplasm of breast; Z85.3 Personal history of malignant neoplasm of breast; Z85.07 Personal history of malignant neoplasm of pancreas; Z92.3 Personal history of irradiation; Z92.21 Personal history of antineoplastic chemotherapy

== ENCOUNTER 2020-06-07 01:45 | Inpatient (IN) | payer MEDICARE, MEDICAID ==
[~2020-06-07] VITALS: Ht 172.7 cm; Wt 75.9 kg
[~2020-06-07 01:45] MED LIST changes: -AMOX500C PO; -CALC1TAB91 PO; -CENTCHW4 PO; -CHOLPOW PO; -CRAN400C PO; -CVS500CA5 PO; -FAMO40TA3 PO; -LOPE2CAP; -LOPE2CAP PO; -MED REC COMMENT; -PROT40IN4 IV; -[UNRECOGNIZED DRUG - CODE] IV
[2020-06-07] MEDS ORDERED: CHOLPOW PO (01:56)
[2020-06-07] MEDS ORDERED: NS 1,000 ML IV ONE (02:15)
[2020-06-07 02:46] LABS: HEMATOCRIT 40.1 % (36.0-47.0); MEAN CORPUSCULAR HEMOGLOBIN 31.1 pg (27.0-33.0); MEAN CORPUSCULAR HGB CONC 34.9 g/dl (32.0-36.5); MEAN CORPUSCULAR VOLUME 89.1 fl (80.0-96.0); PLATELET COUNT, AUTOMATED 130 10^3/uL (150-450)
[2020-06-07 02:51] LABS: WHITE BLOOD COUNT 39.2 10^3/uL (4.0-10.0)
[2020-06-07 02:58] LABS: INR 0.99; PROTHROMBIN TIME 13.3 SECONDS (12.5-14.3)
[2020-06-07 02:59] LABS: PARTIAL THROMBOPLASTIN TIME 23.5 SECONDS (24.2-38.5)
[2020-06-07 03:09] LABS: LYMPHOCYTES 5 % (16-44); METAMYELOCYTES 1 % (0-0); NEUTROPHILS 87 % (28-66); PLATELET ESTIMATE NORMAL (NORMAL)
[2020-06-07 03:11] LABS: GIANT PLATELETS 1+
[2020-06-07] MEDS ORDERED: PROMETHAZINE INJ 25 MG/ML VIAL (J2550) IV ONE ×2 (03:30→14:15)
[2020-06-07] MEDS ORDERED: MORPHINE 4 MG/ML 1ML VIAL/SYRINGE (J2270) IV PRN (03:30)
[2020-06-07 03:32] LABS: ALBUMIN 3.7 GM/DL (3.2-5.2); ALT/SGPT 83 U/L (12-78); BILIRUBIN,DIRECT 0.2 MG/DL (0.0-0.2); BILIRUBIN,TOTAL 0.8 MG/DL (0.2-1.0); BLOOD UREA NITROGEN 18 MG/DL (7-18); CALCIUM LEVEL 9.1 MG/DL (8.8-10.2); CARBON DIOXIDE LEVEL 27 MEQ/L (21-32); CHLORIDE LEVEL 97 MEQ/L (98-107); CK-MB VALUE MASS < 1.0 NG/ML (<3.6); CPK CREATINE PHOSPHOKINASE 61 U/L (26-192); GLOMERULAR FILTRATION RATE 59.2 (>45); GLUCOSE, FASTING 155 MG/DL (70-100); LIPASE 70 U/L (73-393); MB/CK RELATIVE INDEX 1.64 (< OR =4); POTASSIUM SERUM 3.7 MEQ/L (3.5-5.1); SODIUM LEVEL 137 MEQ/L (136-145); TOTAL PROTEIN 7.5 GM/DL (6.4-8.2); TROPONIN I < 0.02 NG/ML (< 0.10)
[2020-06-07] MEDS ORDERED: ISOVUE-370 76% 100ML VIAL As Ordered ONE (03:53)
--- NOTE | 2020-06-07 05:43 | ECGEPIP ---
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
[2020-06-07] MEDS ORDERED: ONDANSETRON 4MG/2ML VIAL IV ONE (06:00)
[2020-06-07] MEDS ORDERED: FAMO40TA3 PO (11:10)
[2020-06-07] MEDS ORDERED: CVS500CA5 PO (11:10)
[2020-06-07] MEDS ORDERED: MED REC COMMENT (11:10)
--- NOTE | 2020-06-07 13:23 | HPEPDOC ---
General Date of Admission Jun 07, 2020 at 11:57 Date of Service: Jun 07, 2020 Attending Physician: AMRIT DIAL MD Chief Complaint The patient is a 65-year-old female admitted with a reason for visit of Intractable Nausea And Vomiting,Pancreatic Cancer. History of Present Illness Pt is a 65 y/o elderly female with PMhx significant for Pancreatic ca ddx'd in February 2020 currently on chemotherapy q2 weeks, presents with cc of intractable vomiting. She states that her last chemo session was last Sunday and that she usu would get nauseated post chemo, but this time it is different. The nausea and vomiting started on Sunday out of nowhere and has gotten progressively worse. She cannot keep water down without vomiting. She states she has not been able to eat anything since sunday. She is experiencing epigastric pain from the vomiting and also states that her throat is very sore. She denies any CP, SOB, fever, diarrhea but does report having chills and currently still nauseated and vomiting despite being given zofran in the ER. PMHX: Pancreatic ca. breast ca Past Family Hx: unobtainable PSocial Hx: Denies ETOH use, illicit drug use or alcohol use ALL: NKDA IMAGING: CT of ABD/pelvis w/ Ctx 1.) Mass or area of diminished enhancement in head/uncinate process of pancreas 2.) Atrophy of body and tail the pancreas with dilatation of main pancreatic d uct now demonstrated 3.) Colonic diverticula 4.) Dense atelectasis or small infiltrate in lingula 5.) Hiatal hernia EKG: NSR. No ST changes PHYSICAL EXAM: VITAL SIGNS: please see below GENERAL: Elderly female appeared lying on bed on her side and actively vomiting HEENT: NC, AT, no scleral icterus, no pharyngeal erythema. NECK: no JVD appreciated CV: RRR, no m/g/r, no peripheral edema bilaterally RESPIRATORY: No wheezing, rhonci, rales appreciated on auscultation ABDOMEN: soft, tender from intractable vomiting and retching, nondistended, bowel sounds active in all 4 quadrants EXTREMITIES: No peripheral edema, cyanosis or clubbing NEURO: No focal neuro deficits SKIN: Jaundiced skin PSYCH: AAOx3, mildly anxious from intractable vomiting Home Medications Scheduled Pantoprazole Sodium (Protonix IV) 40 Mg Vial, 40 MG IV DAILY Potassium Chloride/D5-0.45NACL (D5%-1/2Ns-KCl 10 Meq/l IV Megan) 10 Meq/1000 Ml Iv.soln, 1,000 ML IV 100ml/hr Allergies Coded Allergies: No Known Allergies (Unverified , 01/07/19) A-FIB/CHADSVASC A-FIB History Current/History of A-Fib/PAF?: No Vital Signs Vital Signs Date Time Temp Pulse Resp B/P (MAP) Pulse Ox O2 Delivery O2 Flow Rate FiO2 06/07/20 04:45 85 118/73 (88) 96 06/07/20 04:12 16 Nasal Cannula 2.0 06/07/20 01:47 98.2 Laboratory Data Labs 24H Laboratory Tests 2 06/07/20 02:37: Immature Granulocyte % (Auto) , Neutrophils (%) (Auto) , Nucleated Red Blood Cells % (auto) 0.0, Neutrophils 87H, Band Neutrophils 7, Lymphocytes (Manual) 5L, Metamyelocytes 1H, Red Blood Cell Morphology NORMAL, Hypersegmented Polys , Giant Platelets 1+, Platelet Estimate NORMAL, Prothrombin Time 13.3, Prothromb Time International Ratio 0.99, Activated Partial Thromboplast Time 23.5L, Anion Gap 13, Glomerular Filtration Rate 59.2, Calcium Level 9.1, Total Bilirubin 0.8, Direct Bilirubin 0.2, Aspartate Amino Transf (AST/SGOT) 59H, Alanine Aminotransferase (ALT/SGPT) 83H, Alkaline Phosphatase 268H, Total Creatine Kinase 61, Creatine Kinase MB < 1.0, Creatine Kinase MB Relative Index 1.64, Troponin I < 0.02, Total Protein 7.5, Albumin 3.7, Albumin/Globulin Ratio 1.0L, Lipase 70L 06/07/20 04:49: Lactic Acid Level 1.3 CBC/BMP Laboratory Tests 06/07/20 02:37 Assessment/Plan This is a 65 y/o elderly female with PMhx significant for Pancreatic ca ddx'd in February 2020 currently on chemotherapy q2 weeks, presents with cc of intractable vomiting. She could not tolerate PO trials in the ER. She's being admitted for obs and given IV meds for intractable vomiting Plan / VTE VTE Prophylaxis Ordered?: Yes Plan Plan #Intractable vomiting likely 2/2 to Chemotherapy -NPO - Last chemo was 06/02/2020; pump turned off on 06/04 - IV phenergan 12.5 Q6H - IV zofran 4mg q6h - IVF 0.9% NS @115cc/h - Strict in and outs #Pancreatic ca on Chemo - CT abd pelvis with ctx shows: Mass or area of diminished enhancement in head/uncinate process of pancreas - Last chemo was 06/02/2020 - pain control with morphine PRN #Hx of breast ca - Patient on home med anasterozole- Held currently due to pt not being able to tolerate PO - Will resume once patient is able to tolerate PO #Leukocytosis likely reactive - UA ordered- pending - Will continue to monitor CBC with diff/ closely DVT ppx: Heparin 5000mg SubQ TID GI ppx: Protonix 40mg IV qdaily Code Status: Full code IVF: NS 0.9% @115cc/h Diet: NPO Disposition: IVF hydration and anti-emetics for n/v. GME ATTESTATION GME ATTESTATION My faculty preceptor for this patient encounter was physically present during the encounter and was fully available. All aspects of the patient interview, examination, medical decision making process, and medical care plan development were reviewed and approved by the faculty preceptor. The faculty preceptor is aware and concurs with the plan as stated in the body of this note and will attest to such by his/her cosignature. ATTENDING NOTE Patient was seen and examined by me personally with the residents and students. Agree with the above assessment and plan Shahana Mckeon DO Jun 07, 2020 13:23 AMRIT DIAL MD Jun 16, 2020 09:28
[2020-06-07] MEDS ORDERED: OLANZapine 10 MG TAB PO SCH (14:15)
[2020-06-07] MEDS ORDERED: PROCHLORPERAZINE 5 MG TAB (S0183) PO PRN (14:15)
[2020-06-07 15:29] LABS: MAGNESIUM LEVEL 2.4 MG/DL (1.8-2.4); PHOSPHORUS LEVEL 3.3 MG/DL (2.5-4.9)
[2020-06-07 15:45] VITALS: BP 143/77
[2020-06-07] MEDS ORDERED: ONDANSETRON 4MG/2ML VIAL IV SCH (16:00)
[2020-06-07] MEDS: PANTOPRAZOLE 40MG VIAL (C9113 PER 1) IV SCH (16:07)
[2020-06-07] MEDS: NS 1,000 ML IV SCH ×2 (16:07→23:37)
[2020-06-07] MEDS: HEPARIN SOD (PORCINE) 5000UNITS/ML 1ML VIAL/SYRINGE SC SCH ×2 (16:08→22:06)
[2020-06-07] MEDS: CEPACOL LOZENGE PO PRN (16:59)
[2020-06-07] MEDS: MORPHINE 2 MG/ML 1ML VIAL (J2270) IV PRN (17:16)
[2020-06-07] MEDS: ONDANSETRON 4MG/2ML VIAL IV SCH (17:17)
[2020-06-07] MEDS ORDERED: MAGNESIUM OXIDE 400 MG TAB (MAG-OX) PO SCH (21:00)
[2020-06-07] MEDS ORDERED: oxyBUTYnin 5 MG TAB PO SCH (21:00)
[2020-06-07 22:00] VITALS: BP 122/75
[2020-06-08] MEDS: ONDANSETRON 4MG/2ML VIAL IV SCH ×5 (00:34→23:33)
[2020-06-08] MEDS: HEPARIN SOD (PORCINE) 5000UNITS/ML 1ML VIAL/SYRINGE SC SCH ×3 (05:38→22:27)
[2020-06-08] MEDS: CEPACOL LOZENGE PO PRN (05:43)
[2020-06-08 06:00] VITALS: BP 124/75
[2020-06-08 06:23] LABS: ALBUMIN 2.8 GM/DL (3.2-5.2); ALT/SGPT 60 U/L (12-78); BILIRUBIN,TOTAL 0.7 MG/DL (0.2-1.0); BLOOD UREA NITROGEN 16 MG/DL (7-18); CALCIUM LEVEL 8.4 MG/DL (8.8-10.2); CARBON DIOXIDE LEVEL 27 MEQ/L (21-32); CHLORIDE LEVEL 107 MEQ/L (98-107); CREATININE FOR GFR 0.67 MG/DL (0.55-1.30); GLOMERULAR FILTRATION RATE > 60.0 (>45); GLUCOSE, FASTING 76 MG/DL (70-100); POTASSIUM SERUM 3.5 MEQ/L (3.5-5.1); SODIUM LEVEL 141 MEQ/L (136-145); TOTAL PROTEIN 5.6 GM/DL (6.4-8.2)
[2020-06-08] MEDS: NS 1,000 ML IV SCH ×3 (08:04→23:33)
[2020-06-08] MEDS ORDERED: FAMOTIDINE 20 MG TAB PO SCH (09:00)
[2020-06-08] MEDS ORDERED: ASPIRIN 81 MG ENTERIC TAB PO SCH (09:00)
[2020-06-08 09:41] LABS: APPEARANCE, URINE CLEAR (CLEAR); BACTERIA, URINE AUTO NEGATIVE (NEGATIVE); BILIRUBIN, URINE AUTO NEGATIVE (NEGATIVE); BLOOD, URINE BLOOD NEGATIVE (NEGATIVE); COLOR, URINE YELLOW (YELLOW); GLUCOSE, URINE (UA) AUTO NEGATIVE (NEGATIVE); KETONE, URINE AUTO 1+ mg/dL (NEGATIVE); LEUKOCYTE ESTERASE, URINE AUTO NEGATIVE (NEGATIVE); NITRITE, URINE AUTO NEGATIVE (NEGATIVE); PROTEIN, URINE AUTO 1+ mg/dL (NEGATIVE); RBC, URINE AUTO 2 /HPF (0-3); SPECIFIC GRAVITY URINE AUTO 1.044 (1.002-1.035); SQUAMOUS EPITHELIAL CELL UR AU 2 /HPF (0-6); UROBILINOGEN, URINE AUTO 0.2 mg/dL (0.0-2.0); WBC, URINE AUTO 19 /HPF (0-3)
--- NOTE | 2020-06-08 10:17 | IPNPDOC ---
Date Seen The patient was seen on 06/08/20. Progress Note Hospitalist Attending Physician Progress Note 06/08/20 dictated VS, I&O, 24H, Fishbone Vital Signs/I&O Vital Signs Date Time Temp Pulse Resp B/P (MAP) Pulse Ox O2 Delivery O2 Flow Rate FiO2 06/08/20 06:00 98.6 72 17 124/75 (91) 94 Room Air 06/07/20 04:12 2.0 I&O- Last 24 Hours up to 6 AM 06/08/20 06:00 Intake Total 345 ml Output Total 250 ml Balance 95 ml Laboratory Data 24H LABS Laboratory Tests 2 06/07/20 14:42: Phosphorus Level 3.3, Magnesium Level 2.4 06/08/20 05:18: Anion Gap 7L, Glomerular Filtration Rate > 60.0, Calcium Level 8.4L, Total Bilirubin 0.7, Aspartate Amino Transf (AST/SGOT) 41H, Alanine Aminotransferase (ALT/SGPT) 60, Alkaline Phosphatase 223H, Total Protein 5.6#L, Albumin 2.8#L, Albumin/Globulin Ratio 1.0L 06/08/20 08:30: Urine Color YELLOW, Urine Appearance CLEAR, Urine pH 8.0, Urine Specific [place] 1.044, Urine Protein 1+H, Urine Glucose (Auto)(UA) NEGATIVE, Urine Ketones (Auto) 1+H, Urine Blood NEGATIVE, Urine Nitrite NEGATIVE, Urine Bilirubin NEGATIVE, Urine Urobilinogen 0.2, Urine Leukocyte Esterase (Auto) NEGATIVE, Urine WBC (Auto) 19H, Urine RBC (Auto) 2, Urine Hyaline Casts (Auto) 0, Urine Bacteria (Auto) NEGATIVE, Urine Squamous Epithelial Cells 2, Urine Sperm (Auto) CBC/BMP Laboratory Tests 06/08/20 05:18 Microbiology Microbiology 06/07/20 Blood Culture, Received Pending JALEN CURTIS MD Jun 08, 2020 10:17
[2020-06-08 14:00] VITALS: BP 128/73
[2020-06-08] MEDS: PANTOPRAZOLE 40MG VIAL (C9113 PER 1) IV SCH (14:49)
[2020-06-08] MEDS ORDERED: PROHANCE 279.3MG/ML 15ML VIAL As Ordered ONE (17:03)
--- NOTE | 2020-06-08 19:05 | REPVR ---
PROCEDURE INFORMATION: Exam: MR Abdomen Without and With Contrast Exam date and time: 06/08/2020 5:55 PM Age: 65 years old Clinical indication: Pain and condition or disease; Pancreas; Abdominal pain; Epigastric; Patient HX: Pancreatic cancer R/O obstruction intractable nausea vomitin TECHNIQUE: Imaging protocol: MR of the abdomen without and with intravenous contrast. 3D rendering (Not supervised by radiologist): MIP and/or 3D reconstructed images were created by the technologist. Contrast material: PROHANCE; Contrast volume: 15 ml; Contrast route: INTRAVENOUS (IV); COMPARISON: MRI ABD W/O FOL WITH 03/02/2020 9:24 AM; CT abdomen pelvis 06/07/2020. FINDINGS: Liver: There is diffuse loss of hepatic signal on out of phase images in comparison to in phase images consistent with steatosis. No focal abnormalities demonstrated. Liver size is normal. Subcentimeter cyst in the peripheral aspect of the right lobe of the liver. Gallbladder and bile ducts: Unremarkable. No stones. No ductal dilation. Pancreas: There is a ill-defined spiculated enhancing mass in the pancreatic head and uncinate process measuring approximately 1.4 x 1.2 cm. Mass is associated with downstream obstruction of the pancreatic duct which is dilated to 7 mm maximally. Diffuse pancreatic atrophy demonstrated in the body and tail. Spleen: Unremarkable. No splenomegaly. Adrenals: Unremarkable. No mass. Kidneys and ureters: 1.2 cm simple cyst upper pole right kidney. No enhancement demonstrated. Stomach and bowel: Visualized stomach and intestines are unremarkable. Intraperitoneal space: No free fluid. Arteries: No abdominal aortic aneurysm. Bones/joints: Unremarkable. Soft tissues: Unremarkable. IMPRESSION: 1. There is diffuse loss of hepatic signal on out of phase images in comparison to in phase images consistent with steatosis. No focal abnormalities demonstrated. Liver size is normal. 2. There is a ill-defined spiculated enhancing mass in the pancreatic head and uncinate process measuring approximately 1.4 x 1.2 cm. Mass is associated with downstream obstruction of the pancreatic duct which is dilated to 7 mm maximally. Diffuse pancreatic atrophy demonstrated in the body and tail. 3. 1.2 cm simple cyst upper pole right kidney. No enhancement demonstrated. COMMENTS: Consistent with the [employer]'s Incidental Findings Committee white paper (J Am Joanne Radiol 2018): Any incidental renal lesion less than 1 cm or classified as too small to characterize, or any incidental cystic renal lesion characterized as simple-appearing, is likely benign. No follow-up imaging is recommended for these lesions per consensus recommendations based on imaging criteria. Electronically signed by: Pavel Mann On 06/08/2020 19:04:51 PM
[2020-06-08 22:00] VITALS: BP 130/74
[2020-06-09] MEDS: PROMETHAZINE INJ 25 MG/ML VIAL (J2550) IV PRN ×2 (01:15→10:57)
[2020-06-09 06:00] VITALS: BP 130/75
[2020-06-09] MEDS: ONDANSETRON 4MG/2ML VIAL IV SCH ×3 (06:00→14:38)
[2020-06-09] MEDS: HEPARIN SOD (PORCINE) 5000UNITS/ML 1ML VIAL/SYRINGE SC SCH ×2 (06:20→14:00)
[2020-06-09 07:08] LABS: HEMATOCRIT 29.8 % (36.0-47.0); HEMOGLOBIN 9.9 g/dl (12.0-15.5); MEAN CORPUSCULAR HEMOGLOBIN 30.8 pg (27.0-33.0); MEAN CORPUSCULAR HGB CONC 33.2 g/dl (32.0-36.5); MEAN CORPUSCULAR VOLUME 92.8 fl (80.0-96.0); RED BLOOD COUNT 3.21 10^6/uL (4.00-5.40); WHITE BLOOD COUNT 8.6 10^3/uL (4.0-10.0)
[2020-06-09 07:28] LABS: ALBUMIN 2.7 GM/DL (3.2-5.2); ALT/SGPT 58 U/L (12-78); BILIRUBIN,TOTAL 0.7 MG/DL (0.2-1.0); BLOOD UREA NITROGEN 12 MG/DL (7-18); CARBON DIOXIDE LEVEL 24 MEQ/L (21-32); CHLORIDE LEVEL 110 MEQ/L (98-107); CREATININE FOR GFR 0.55 MG/DL (0.55-1.30); GLOMERULAR FILTRATION RATE > 60.0 (>45); GLUCOSE, FASTING 66 MG/DL (70-100); POTASSIUM SERUM 3.4 MEQ/L (3.5-5.1); SODIUM LEVEL 141 MEQ/L (136-145); TOTAL PROTEIN 5.3 GM/DL (6.4-8.2)
[2020-06-09 08:00] LABS: PLATELET COUNT, AUTOMATED 54 10^3/uL (150-450)
[2020-06-09] MEDS: NS 1,000 ML IV SCH (09:05)
--- NOTE | 2020-06-09 10:02 | REP ---
CT ABDOMEN AND PELVIS WITH IV CONTRAST COMPARISON: 04/22/2019 FINDINGS: CT abdomen and pelvis performed following the intravenous administration of 100 cc of Isovue-370. Sagittal and coronal reconstruction images are performed. In the visualized lung bases, there are mild chronic fibrotic changes. There is dense infiltrate or atelectasis in the left lung base, predominantly in the lingula. The liver is normal in size with no mass. The spleen is normal in size with no intrinsic abnormality. The adrenal glands are normal. The pancreas demonstrates a hypodense mass in the head of the pancreas adjacent to the bifurcation of the celiac artery. This measures approximately 1.5 cm in maximum diameter. There is dilatation of the pancreatic duct peripheral to this up to 8 mm. There is atrophy of the body and tail of the pancreas which is a new finding. A cyst in the upper pole of the right kidney measures 1.3 cm in diameter. There is no hydronephrosis bilaterally. The abdominal aorta demonstrates mild atherosclerotic calcification with no aneurysm or dissection. No adenopathy is seen in the abdomen or pelvis. There is no free air or free fluid. No definite bowel wall thickening is seen. Scattered diverticula are noted of the colon. In the pelvis, multiple metallic clips are seen in the anterior wall of the pelvis likely from prior hernia surgery. Urinary bladder is mildly distended and grossly unremarkable. The uterus and ovaries are grossly unremarkable. There is no pelvic mass identified. There are mild degenerative changes of the spine. There is a small hiatal hernia. IMPRESSION: Mass in the head of the pancreas adjacent to the bifurcation of the celiac artery. This measures 1.5 cm maximally. There is apparent obstruction of the pancreatic duct at that level with peripheral dilatation of the duct up to 8 mm. There is also atrophy of the body and tail of the pancreas. No adenopathy. No free air or free fluid. Dense infiltrate or atelectasis left lung base. Preliminary report provided by virtual radiology at the time of the exam. [facility]
[2020-06-09] MEDS: PANTOPRAZOLE 40MG VIAL (C9113 PER 1) IV SCH (14:38)
[2020-06-09] MEDS ORDERED: [UNRECOGNIZED DRUG - CODE] IV (14:52)
[2020-06-09] MEDS ORDERED: PROT40IN4 IV (14:52)
--- NOTE | 2020-06-09 15:20 | IPN ---
DATE: 06/08/2020 SUBJECTIVE: Patient seen and examined at the bedside. Chart has been reviewed. She complains of intractable nausea without any vomiting. Anicteric. No jaundice. Unable to keep anything down at home. Afebrile overnight. No complaints of chills. No shortness of breath despite intravenous (IV) fluids overnight. Saturating 94%-100% on room air. No chest tightness or pressure. VITAL SIGNS: Temperature 98.6, pulse 72, sinus rhythm, respiratory rate 17, blood pressure 124/75, 94% on room air. GENERAL: Awake, alert, oriented times three, answering questions appropriately. Anicteric sclerae. No jaundice. Pupils round and reactive. Extraocular muscles are intact. No cervical lymphadenopathy, thyromegaly, or jugular venous distention. LUNGS: Clear to auscultation. No wheezing, rales, or rhonchi. Air entry is equal, No adventitious breath sounds. HEART: S1, S2, sinus rhythm. No murmurs, rugs, or gallops. Nondisplaced point of maximal impulse. No carotid bruit. No abdominal bruit. ABDOMEN: Soft, slightly tender in the left upper quadrant/epigastric area. No rebound. No guarding. Positive bowel sounds times four quadrants. Nondistended. No ascites or fluid wave. EXTREMITIES: No cyanosis, clubbing, or pitting edema. LABORATORY DATA: Sodium 141, potassium 3.5, chloride 107, bicarbonate 27, BUN 16, creatinine 0.67, glucose 76, calcium 8.4. AST 41, ALT 60, alkaline phosphatase 223, albumin 2.8, albumin/globulin ratio of 1. June 07 CBC reviewed. June 08 CBC is still pending. On 03/02/2020, MRI of the abdomen: Ill-defined enhancing mass in the body of the pancreas, measuring 2 x 1.6 cm, representing carcinoma, causing obstruction of the pancreatic duct with moderate dilatation of the duct. Maximum diameter is 8 mm. Mass is located anterior to the bifurcation of the celiac artery. ASSESSMENT AND PLAN: This is a 65 y female, followed by Dr. Ophelia Rdz at the [facility], with history of breast cancer and PALB2 genetic mutation, found to have a pancreatic mass on MRI of the abdomen 03/02/2020, status post endoscopic ultrasound and fine needle aspiration with biopsy showing adenocarcinoma. Preoperative chemotherapy was recommended after EUS showing the mass abutting the celiac artery. Completed FOLFIRINOX chemotherapy on April 26. Completed two cycles with a second cycle complicated by neutropenia, given filgrastim, as well as diarrhea with as-needed Imodium. Patient had increased lethargy with olanzapine, which has been held. Patient has been admitted for intractable nausea and vomiting due to pancreatic mass with dilatation of the pancreatic duct with mass abutting into the celiac artery. IMPRESSION: 1. Pancreatic adenocarcinoma with a mass abutting the celiac artery. No clear separation between the artery and the mass. Fine needle aspiration positive for adenocarcinoma. Starting preoperative and neoadjuvant FOLFIRINOX chemotherapy 04/26/2002. Completed two cycles. Complicated by neutropenia, diarrhea, and lethargy with olanzapine. Medical oncology has been consulted. Currently nothing by mouth status, on IV fluids, which she is tolerating. As-needed pain medications with morphine, IV fluids with normal saline, heparin subcutaneous for deep venous thrombosis (DVT) prophylaxis, and Phenergan for nausea. Repeat MRI of the appropriate will be performed. Patient sees a surgeon in [place] at [facility]. Once MRI of the abdomen has been obtained, will discuss with gastroenterology in [place] and decide on further course of action. Medical oncologist, Dr. Francisco Croft, has been consulted as well for further recommendations. 2. A 20-pound weight loss secondary to pancreatic cancer. Currently with nothing by mouth status, on IV fluids. 3. History of hiatal hernia, on proton pump inhibitor (PPI). 4. History of breast cancer in the past. MTDD
[2020-06-09] MEDS ORDERED: KCL 10MEQ IN D5/0.45NS 1000ML 1,000 ML IV SCH (16:00)
--- NOTE | 2020-06-09 16:25 | DS.PDOC ---
Discharge Summary General Date of Admission Jun 07, 2020 at 11:57 Date of Discharge 06/09/20 Transferred to [facility] Accepting MD: Pancreatic Surgeon Dr. Prince Reason for transfer: pancreatic duct obstruction due to pancreatic adenocarcinoma Discharge Summary CONSULTANTS: Medical Oncologist: Dr. Francisco Croft Job Change Crew Member: Dr. Molina (Dr. 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 Ophelia Rdz, medical oncologist, at the [facility], with history of breast cancer and PALB2 genetic mutation, found to have a pancreatic mass on MRI of the abdomen 03/02/2020, status post endoscopic ultrasound and fine needle aspiration with biopsy showing adenocarcinoma. Preoperative chemotherapy was recommended after EUS showing the mass abutting the celiac artery. Completed FOLFIRINOX chemotherapy on April 26. Completed twocycles with a second cycle complicated by neutropenia, given filgrastim, as wellas diarrhea with as-needed Imodium. Patient had increased lethargy with olanzapine, which has been held. Patient has been admitted for intractable nausea and vomiting due to pancreatic mass with dilatation of the pancreatic duct with mass abutting into the celiac artery. HOSPITAL COURSE: Patient was kept nothing by mouth status, given IV fluids, which she tolerated without shortness of breath or fluid overload, PRN anti-emetics, PPI IV dailya, and heparin subcutaneous for deep venous thrombosis (DVT) prophylaxis. Repeat MRI of the abdomen showed decreased size of the tumor, but with persistent pancreatic ductal dilatation of 7mm due to adenocarcinoma after completing 3 cycles of chemotherapy with plans for 4th cycle on the first week of June. Medical Oncologist manager education, Dr. Croft was consulted, as well as Job Change Crew Member Dr. Molina. GI discussed the MRI abdomen findings with his colleague Dr. Baig, and recommended transferring the patient to a higher level of care for possible stent placement. Pt's pancreatic surgeon agreed to accept her in transfer. Family was informed, and patient gave consent. COVID NEGATIVE. DISCHARGE PHYSICAL EXAMINATION VITAL SIGNS: See below GENERAL: Awake, alert, oriented times three, answering questions appropriately. Anicteric sclerae. No jaundice. Pupils round and reactive. Extraocular muscles are intact. No cervical lymphadenopathy, thyromegaly, or jugular venous distention. LUNGS: Clear to auscultation. No wheezing, rales, or rhonchi. Air entry is equal, No adventitious breath sounds. HEART: S1, S2, sinus rhythm. No murmurs, rugs, or gallops. Nondisplaced point ofmaximal impulse. No carotid bruit. No abdominal bruit. ABDOMEN: Soft, slightly tender in the left upper quadrant/epigastric area. No rebound. No guarding. Positive bowel sounds times four quadrants. Nondistended. No ascites or fluid wave. EXTREMITIES: No cyanosis, clubbing, or pitting edema. DISCHARGE LABORATORY DATA: pls see below IMAGING STUDIES: CT ABDOMEN AND PELVIS WITH IV CONTRAST COMPARISON: 04/22/2019 FINDINGS: CT abdomen and pelvis performed following the intravenous administration of 100 cc of Isovue-370. Sagittal and coronal reconstruction images are performed. In the visualized lung bases, there are mild chronic fibrotic changes. There is dense infiltrate or atelectasis in the left lung base, predominantly in the lingula. The liver is normal in size with no mass. The spleen is normal in size with no intrinsic abnormality. The adrenal glands are normal. The pancreas demonstrates a hypodense mass in the head of the pancreas adjacent to the bifurcation of the celiac artery. This measures approximately 1.5 cm in maximum diameter. There is dilatation of the pancreatic duct peripheral to this up to 8 mm. There is atrophy of the body and tail of the pancreas which is a new finding. A cyst in the upper pole of the right kidney measures 1.3 cm in diameter. There is no hydronephrosis bilaterally. The abdominal aorta demonstrates mild atherosclerotic calcification with no aneurysm or dissection. No adenopathy is seen in the abdomen or pelvis. There isno free air or free fluid. No definite bowel wall thickening is seen. Scattered diverticula are noted of the colon. In the pelvis, multiple metallic clips are seen in the anterior wall of the pelv is likely from prior hernia surgery. Urinary bladder is mildly distended andgrossly unremarkable. The uterus and ovaries are grossly unremarkable. There is no pelvic mass identified. There are mild degenerative changes of the spine. There is a small hiatal hernia. IMPRESSION: Mass in the head of the pancreas adjacent to the bifurcation of the celiac artery. This measures 1.5 cm maximally. There is apparent obstruction of the pancreatic duct at that level with peripheral dilatation of the duct up to 8 mm.There is also atrophy of the body and tail of the pancreas. No adenopathy. No free air or free fluid. Dense infiltrate or atelectasis left lung base. Preliminary report provided by virtual radiology at the time of the exam. DD: Romario Minor MD, MD 06/07/20 1500 DT: AAYUSH 06/09/20 1002 DS: BILLY 06/09/20 1056 <Electronically signed by Romario Minor MD> 06/09/20 1056 PROCEDURE INFORMATION: Exam: MR Abdomen Without and With Contrast Exam date and time: 06/08/2020 5:55 PM Age: 65 years old Clinical indication: Pain and condition or disease; Pancreas; Abdominal pain; Epigastric; Patient HX: Pancreatic cancer R/O obstruction intractable nausea vomitin TECHNIQUE: Imaging protocol: MR of the abdomen without and with intravenous contrast. 3D rendering (Not supervised by radiologist): MIP and/or 3D reconstructed images were created by the technologist. Contrast material: PROHANCE; Contrast volume: 15 ml; Contrast route: INTRAVENOUS (IV); COMPARISON: MRI ABD W/O FOL WITH 03/02/2020 9:24 AM; CT abdomen pelvis 06/07/2020. FINDINGS: Liver: There is diffuse loss of hepatic signal on out of phase images in comparison to in phase images consistent with steatosis. No focal abnormalities demonstrated. Liver size is normal. Subcentimeter cyst in the peripheral aspect of the right lobe of the liver. Gallbladder and bile ducts: Unremarkable. No stones. No ductal dilation. Pancreas: There is a ill-defined spiculated enhancing mass in the pancreatic head and uncinate process measuring approximately 1.4 x 1.2 cm. Mass is associated with downstream obstruction of the pancreatic duct which is dilated to 7 mm maximally. Diffuse pancreatic atrophy demonstrated in the body and tail. Spleen: Unremarkable. No splenomegaly. Adrenals: Unremarkable. No mass. Kidneys and ureters: 1.2 cm simple cyst upper pole right kidney. No enhancement demonstrated. Stomach and bowel: Visualized stomach and intestines are unremarkable. Intraperitoneal space: No free fluid. Arteries: No abdominal aortic aneurysm. Bones/joints: Unremarkable. Soft tissues: Unremarkable. IMPRESSION: 1. There is diffuse loss of hepatic signal on out of phase images in comparison to in phase images consistent with steatosis. No focal abnormalities demonstrated. Liver size is normal. 2. There is a ill-defined spiculated enhancing mass in the pancreatic head and uncinate process measuring approximately 1.4 x 1.2 cm. Mass is associated with downstream obstruction of the pancreatic duct which is dilated to 7 mm maximally. Diffuse pancreatic atrophy demonstrated in the body and tail. TIME SPENT ON DISCHARGE: 30 MINUTES Vital Signs/I&Os Vital Signs Date Time Temp Pulse Resp B/P (MAP) Pulse Ox O2 Delivery O2 Flow Rate FiO2 06/09/20 06:00 99.0 62 18 130/75 (93) 96 Room Air 06/07/20 04:12 2.0 I&O- Last 24 Hours up to 6 AM 06/09/20 06:00 Intake Total 0 ml Output Total 300 ml Balance -300 ml Laboratory Data Labs 24H Laboratory Tests 2 06/09/20 06:22: Nucleated Red Blood Cells % (auto) 0.0, Immature Platelet Fraction 3.4, Anion Gap 7L, Glomerular Filtration Rate > 60.0, Calcium Level 8.0L, Total Bilirubin 0.7, Aspartate Amino Transf (AST/SGOT) 39H, Alanine Aminotransferase (ALT/SGPT) 58, Alkaline Phosphatase 197H, Total Protein 5.3L, Albumin 2.7L, Albumin/Globulin Ratio 1.0L 06/09/20 10:55: Coronavirus (COVID-19)(PCR) NEGATIVE CBC/BMP Laboratory Tests 06/09/20 06:22 Microbiology Microbiology 06/07/20 Blood Culture - Preliminary, Resulted No Growth after 48 hours. All Specime... Discharge Medications Scheduled Pantoprazole Sodium (Protonix IV) 40 Mg Vial, 40 MG IV DAILY Potassium Chloride/D5-0.45NACL (D5%-1/2Ns-KCl 10 Meq/l IV Megan) 10 Meq/1000 Ml Iv.soln, 1,000 ML IV 100ml/hr Allergies Coded Allergies: No Known Allergies (Unverified , 01/07/19) JALEN CURTIS MD Jun 09, 2020 16:13
[2020-06-09 16:26] VITALS: BP 136/78
[2020-06-09] MEDS: MORPHINE 2 MG/ML 1ML VIAL (J2270) IV PRN (16:28)
--- NOTE | 2020-06-10 14:29 | IPN ---
DATE: 06/09/2020 SUBJECTIVE: Patient seen and examined at the bedside. Chart has been reviewed. MRI of the abdomen with and without contrast shows persistent obstruction of the pancreatic duct secondary to pancreatic tumor. She remains afebrile. No nausea or vomiting. Anxious to eat this morning. Anicteric. No jaundice. No fever or chills.. OBJECTIVE: PHYSICAL EXAMINATION: VITAL SIGNS: Temperature 99, pulse 62, respiratory rate 18, blood pressure 130/75, 96% on room air. GENERAL: Anicteric. No jaundice. No respiratory distress. No scleral icterus. No jugular venous distention (JVD) or thyromegaly. No cervical lymphadenopathy. LUNGS: Clear to auscultation. No wheezing, rales, or rhonchi. HEART: S1, S2, sinus rhythm. ABDOMEN: Soft, slightly tender in epigastric and left upper quadrant. No rebound or guarding. Positive bowel sounds times four quadrants. EXTREMITIES: No cyanosis, clubbing, or pitting edema. LABORATORY DATA: White count 8.6, hemoglobin 9.9, hematocrit 29, platelet count 54, previous platelet count of 130. Sodium 141, potassium 3.4, chloride 110, bicarbonate 24, BUN 12, creatinine 0.55, glucose 66, calcium 8. Total bilirubin 0.7, AST 39, ALT 58, alkaline phosphatase 197, albumin 2.7, albumin/globulin ratio of 1. Procalcitonin 0.07. Microbiology: Blood culture: No growth after 24 hours. MRI of the abdomen: Diffuse loss of hepatic signal in out of phase images in comparison to in phase, consistent with steatosis. No focal abnormalities demonstrated. Liver size is normal. Ill-defined spiculated enhancing mass at pancreatic head and uncinate process, measuring approximately 1.4 x 1.2 cm. Mass is associated with downstream obstruction of the pancreatic duct, which is dilated to 7 mm maximally. Diffuse pancreatic atrophy demonstrated in the body and tail. A 1.2 cm simple cyst, upper pole, right kidney. No enhancement demonstrated. ASSESSMENT: This is a 65-year-old female recently diagnosed with pancreatic adenocarcinoma, on the third course of chemotherapy. Endoscopic ultrasound with fine-needle aspiration (FNA) on April 01 showed pancreatic cystic mass in pancreatic body with mass appearing to abut the celiac artery. No clear separation between the mass and the artery. Pathology showing atypical glandular cells. FNA second opinion from [facility] positive for malignancy, adenocarcinoma. Started preoperative neoadjuvant FOLFIRINOX chemotherapy 04/26/2020. Patient had nausea during the first cycle of chemotherapy, relieved with ondansetron, as well as daphne headaches. No peripheral neuropathy at that time. Second cycle of chemotherapy had significant neutropenia but no nausea or vomiting with cold sensitivity but no peripheral neuropathy. She also had some diarrhea at that time, for which she took some Imodium. During the last cycle of chemotherapy, patient developed some sedation, thought to be secondary to olanzapine. Patient was scheduled for cycle #4 chemotherapy first week of June and to have a repeat CT scan June 24 in [place]. Patient presented to the emergency room June 07 with intractable nausea and vomiting, currently with the following issues: 1. Pancreatic cancer with obstruction of the pancreatic duct with intractable nausea and vomiting, status post three cycles of chemotherapy. Fourth cycle of chemotherapy scheduled first week of June with repeat CT abdomen scheduled for June 24. 2. Thrombocytopenia, most likely related to chemotherapy. 3. Leukocytosis, most likely related to filgrastim. 4. Hypokalemia secondary to nothing by mouth status. 5. History of breast cancer. PLAN: MRI of the abdomen was reviewed by two gastroenterologists at [facility] ([facility]), Dr. Baig as well as Dr. Molina. Both recommend transfer to higher level of care, as they are unable to provide stent placement at [facility]. [facility] currently has no beds. She is currently awaiting transfer on a wait list. Dr. Prince has been contacted but has not returned a phone call regarding further recommendations. At this time, since the patient has no nausea or vomiting, will advance her diet to clears diet. Continue with intravenous (IV) fluids to prevent dehydration. Antiemetics for supportive care. Dr. Croft had been consulted from medical oncology yesterday but has yet to see the patient at this time. Will continue with present management and awaiting acceptance for inpatient transfer. CHADD
[2020-06-18] MEDS ORDERED: LOPE2CAP (15:12)
[2020-06-18] MEDS ORDERED: ANAS1TAB2 PO (15:12)
[2020-06-18] MEDS ORDERED: PROC10TA4 PO (15:12)
[2020-06-18] MEDS ORDERED: CENTCHW4 PO (15:20)
[2020-06-18] MEDS ORDERED: CRAN400C PO (15:20)
[2020-06-18] MEDS ORDERED: MAGN400C PO (15:20)
[2020-06-30] MEDS ORDERED: OXYB5TAB10 PO (08:13)
[2020-06-30] MEDS ORDERED: CALC1TAB91 PO (08:13)
[2020-06-30] MEDS ORDERED: FAMO40TA3 PO (08:13)
[2020-07-14] MEDS ORDERED: LOPE2CAP PO (09:59)
[2020-07-14] MEDS ORDERED: AMOX500C PO (14:11)
== END 2020-06-09 16:35 | disposition other institution (70) | DRG 436 ==
LOC: M ED 01:45 → M ED INP 11:57 → ENRESERV 12:15 → M MS5PR 15:45
PROVIDERS: ADMIT Internal Medicine; ATTEND General Practice
DX: C25.0 Malignant neoplasm of head of pancreas (principal); R64 Cachexia; R11.2 Nausea with vomiting, unspecified; Z85.3 Personal history of malignant neoplasm of breast; D72.829 Elevated white blood cell count, unspecified; K86.89 Other specified diseases of pancreas; K44.9 Diaphragmatic hernia without obstruction or gangrene; K57.30 Diverticulosis of large intestine without perforation or abscess without bleeding; Z79.899 Other long term (current) drug therapy; Z79.82 Long term (current) use of aspirin; D69.59 Other secondary thrombocytopenia; E87.6 Hypokalemia

== ENCOUNTER 2020-08-14 09:27 | Inpatient (IN) | payer MEDICARE, MEDICAID ==
[~2020-08-14] VITALS: Ht 170.2 cm; Wt 79.1 kg
[~2020-08-14 09:27] MED LIST changes: +AMOX500C PO; +CALC1TAB91 PO; +CENTCHW4 PO; +CHLO25TA38 PO; +CHOLPOW PO; +CRAN400C PO; +CVS500CA5 PO; +FAMO40TA3 PO; +LOPE2CAP; +LOPE2CAP PO; +MED REC COMMENT; +PROT40IN4 IV; +[UNRECOGNIZED DRUG - CODE] IV
[2020-08-14] MEDS ORDERED: SODIUM CHLORIDE 0.9% INJ 10 ML SYR IV PRN (09:45)
[2020-08-14] MEDS ORDERED: ONDANSETRON 4MG/2ML VIAL IV ONE ×2 (10:00→13:30)
[2020-08-14] MEDS ORDERED: NS 1,000 ML IV ONE ×3 (10:00→13:30)
[2020-08-14 10:15] LABS: HEMOGLOBIN 13.2 g/dl (12.0-15.5); MEAN CORPUSCULAR HEMOGLOBIN 32.3 pg (27.0-33.0); MEAN CORPUSCULAR HGB CONC 32.2 g/dl (32.0-36.5); MEAN CORPUSCULAR VOLUME 100.2 fl (80.0-96.0); RED BLOOD COUNT 4.09 10^6/uL (4.00-5.40)
[2020-08-14 10:28] LABS: WHITE BLOOD COUNT 41.2 10^3/uL (4.0-10.0)
[2020-08-14 10:42] LABS: PLATELET COUNT, AUTOMATED 68 10^3/uL (150-450)
[2020-08-14 10:45] LABS: ALBUMIN 3.7 GM/DL (3.2-5.2); ALT/SGPT 39 U/L (12-78); BILIRUBIN,DIRECT 0.2 MG/DL (0.0-0.2); BILIRUBIN,TOTAL 0.8 MG/DL (0.2-1.0); BLOOD UREA NITROGEN 18 MG/DL (7-18); CALCIUM LEVEL 9.2 MG/DL (8.8-10.2); CARBON DIOXIDE LEVEL 30 MEQ/L (21-32); CHLORIDE LEVEL 101 MEQ/L (98-107); CK-MB VALUE MASS < 1.0 NG/ML (<3.6); CPK CREATINE PHOSPHOKINASE 27 U/L (26-192); CREATININE FOR GFR 0.89 MG/DL (0.55-1.30); GLOMERULAR FILTRATION RATE > 60.0 (>45); GLUCOSE, FASTING 123 MG/DL (70-100); LIPASE 76 U/L (73-393); POTASSIUM SERUM 3.5 MEQ/L (3.5-5.1); SODIUM LEVEL 139 MEQ/L (136-145); TOTAL PROTEIN 7.3 GM/DL (6.4-8.2); TROPONIN I < 0.02 NG/ML (< 0.10)
[2020-08-14 10:47] LABS: ATYPICAL LYMPH 1 % (0-5); LYMPHOCYTES 2 % (16-44); MONOCYTES 1 % (0-5); NEUTROPHILS 92 % (28-66); PLATELET ESTIMATE MARKED DECREASE (NORMAL)
[2020-08-14] MEDS ORDERED: ISOVUE-370 76% 100ML VIAL As Ordered ONE (10:53)
--- NOTE | 2020-08-14 11:08 | REP ---
INDICATION: Cough. COMPARISON: Comparison chest x-ray July 04, 2016.. TECHNIQUE: Sitting AP portable chest x-ray. FINDINGS: A left-sided Pdbzij-I-Qgia catheter is noted with its tip in the expected location of the superior vena cava. Heart is not enlarged. Monitoring electrodes are seen. There is platelike atelectasis in the left base along the left hemidiaphragm. Pulmonary vasculature is not increased. No acute bony abnormality is seen. IMPRESSION: Platelike atelectasis left base along the left hemidiaphragm. Left-sided Gymajl-Q-Kaky catheter in place. <Electronically signed by Jose A Vargas > 08/14/20 1106
[2020-08-14 12:42] LABS: MAGNESIUM LEVEL 1.9 MG/DL (1.8-2.4); PHOSPHORUS LEVEL 3.2 MG/DL (2.5-4.9)
[2020-08-14] MEDS ORDERED: PIPERACILLIN/TAZOBACTAM SOD 4.5 GM in D5W MINI-BAG PLUS 50 ML IV ONE (12:45)
--- NOTE | 2020-08-14 12:53 | REP ---
INDICATION: Well's criteria 2.5. Cough+leukocytosis+active malignancy. Patient gives a history of breast and pancreatic carcinoma. COMPARISON: Comparison chest CT study with IV contrast is from July 04, 2016. Comparison noncontrast CT study of the chest is from May 14, 2020.. TECHNIQUE: Contrast dose: 100 ML of Isovue [address] technique: Helical scanning is acquired and overlapping 1.5 mm and contiguous 3 mm axial images are reformatted. In addition, maximum intensity projection and multiplanar re-formation images are generated in sagittal and coronal imaging projections. FINDINGS: There is good opacification in the pulmonary arterial tree. There is no evidence of vessel cut off or filling defect to suggest pulmonary embolus. Homogeneous opacity is seen in the thoracic aorta. There is no evidence of aneurysm or dissection. Lung window settings demonstrate show no evidence of infiltrate. No pleural or pericardial effusion is seen. There is some discoid atelectatic change in the lingular segment of the left upper lobe. No significant pulmonary nodule is appreciated on the current CT study. No hilar or mediastinal mass or adenopathy is observed. Today's level of inspiration is less than on prior CT study. This results in some bronchovascular crowding. Multiple tiny thyroid nodules are again noted. IMPRESSION: No CT evidence of pulmonary embolus. No acute disease. <Electronically signed by Jose A Vargas > 08/14/20 2104
[2020-08-14] MEDS ORDERED: OLAN10TA2 PO (12:59)
[2020-08-14] MEDS ORDERED: ONDA8TAB8 PO (12:59)
[2020-08-14] MEDS ORDERED: ANAS1TAB2 PO (12:59)
--- NOTE | 2020-08-14 13:02 | REP ---
INDICATION: epigastric abd pain. COMPARISON: Comparison CT study June 07, 2020.. TECHNIQUE: Helical scanning was acquired and 4 mm axial images are re-formatted. Coronal and sagittal MPR images were generated and reviewed. The contrast enhancement dose is 100 mL of intravenous Isovue 370. FINDINGS: Preliminary digital tour coordinator radiograph demonstrates an unremarkable bowel gas pattern. There is mild diffuse fatty infiltration of the liver. No focal liver lesion is seen. The spleen is unremarkable. There is a small accessory splenule. The adrenal glands are normal bilaterally. No abnormality is noted in the gallbladder. There are some worrisome findings in the pancreas. The pancreatic duct is dilated from the head neck junction region to the pancreatic tail and the tail and body of the pancreas are atrophic. This is a change from April 2019 prior study. The pancreatic head is unremarkable. No mass lesion is visible but there is is an abrupt change in caliber of the pancreatic duct at the junction of the head and body of the pancreas. Pancreatic ductal stricture or small obstructing mass could produce this appearance. There is no evidence of upper abdominal or regional adenopathy. No abnormal pancreatic parenchymal contrast enhancement is appreciated. The kidneys enhance symmetrically and are morphologically intact. No retroperitoneal mass or adenopathy is observed. There is mild diffuse mural thickening in the descending colon and splenic flexure region of the colon question enterocolitis. Small and large intestinal bowel loops are otherwise unremarkable. There is mild left colonic diverticulosis. No uterine or adnexal abnormality is seen. Urinary bladder is intact. No abdominal wall defect is observed. IMPRESSION: Mild diffuse fatty infiltration of the liver. There is atrophy of the body and tail of the pancreas with dilation of the main pancreatic duct which abruptly tapers at the pancreatic head body junction region. Pancreatic duct measures up to 7 mm. Pancreatic duct stricture versus small obstructing pancreatic neoplastic mass. Consideration could be given to MRI/MRCP of the pancreas and transgastric endoscopic ultrasound for further evaluation. There is mild mural thickening of the colon question enterocolitis. There is scattered diverticulosis changes without diverticulitis. <Electronically signed by Jose A Vargas > 08/14/20 [id number]
[2020-08-14] MEDS ORDERED: PROCHLORPERAZINE 10MG/2ML VIAL (J0780 PER 1) IV PRN (13:15)
[2020-08-14] MEDS ORDERED: LOPERAMIDE 2 MG CAPLET PO PRN (13:30)
[2020-08-14] MEDS ORDERED: KETOROLAC 30 MG/ML 1ML VIAL IV ONE (13:30)
[2020-08-14] MEDS: PIPERACILLIN/TAZOBACTAM SOD 3.375 GM in D5W MINI-BAG PLUS 50 ML IV SCH ×2 (13:40→20:27)
[2020-08-14 14:00] VITALS: BP 153/78
[2020-08-14] MEDS ORDERED: PANTOPRAZOLE 40MG VIAL (C9113 PER 1) IV SCH (14:00)
[2020-08-14] MEDS: oxyBUTYnin 5 MG TAB PO SCH (15:00)
[2020-08-14] MEDS: ONDANSETRON 4MG/2ML VIAL IV SCH ×2 (15:31→20:27)
--- NOTE | 2020-08-14 16:53 | ECGEPIP ---
[facility] - ED Test Date: 2020-08-14 Pat Name: LUPE CEJA Department: Room: - Gender: Female Skin Care Therapist: : 1955 Requested By: ÁNGEL MCGILL Order Number: [id number] Reading MD: Aylin Hernandez Measurements Intervals [place] Rate: 77 P: 70 ME: 143 QRS: -3 QRSD: 85 T: 50 QT: 388 QTc: 440 Interpretive Statements SINUS RHYTHM NONSPECIFIC ST T WAVE CHANGES 06/07/[address] T WAVE CHANGES Electronically Signed on 08-14-2020 16:52:34 EST by Aylin Hernandez
[2020-08-14] MEDS: D5W/0.9% SODIUM CHLORIDE 1,000 ML IV SCH (17:17)
[2020-08-14 20:42] VITALS: BP 101/56
[2020-08-15] MEDS: PIPERACILLIN/TAZOBACTAM SOD 3.375 GM in D5W MINI-BAG PLUS 50 ML IV SCH ×2 (02:03→06:43)
[2020-08-15] MEDS: ONDANSETRON 4MG/2ML VIAL IV SCH ×2 (02:03→08:01)
[2020-08-15] MEDS: D5W/0.9% SODIUM CHLORIDE 1,000 ML IV SCH ×2 (02:09→06:43)
--- NOTE | 2020-08-15 06:51 | HPEPDOC ---
General Date of Admission 08/14/20 Date of Service: Aug 14, 2020 Chief Complaint The patient is a 65-year-old female admitted with a reason for visit of Nausea. Source: Patient, RN/MD History of Present Illness 65 year old female with localized pancreatic cancer diagnosed in february this year has been getting preoperative chemotherapy. She received her 6th cycle of chemotherapy from Aug 09- aug 11. She received G-CSF on 08/11/20. She presents today for intractable nausea and vomiting for 1 days. She took all her antiemetic medications as prescribed but has not been able to keep anything down. She also reported 3 small diarrhea last night after which she took imodium. She has constant epigastric and left upper quadrant pain about 4/10 dull aching in nature which she feels is a little worse than usual. She is admitted for intractable vomiting, unable to tolerate any PO intake , possible enterocolitis, SIRS vs sepsis from an intraabdominal source. Work up in ED WBC was at 41K, Lactate at 2.2, Platelet 68 CT abd and pelvis with contrast: Mild diffuse fatty infiltration of the liver. There is atrophy of the body and tail of the pancreas with dilation of the main pancreatic duct which abruptly tapers at the pancreatic head body junction region. Pancreatic duct measures up to 7 mm. Pancreatic duct stricture versus small obstructing pancreatic neoplastic mass. Consideration could be given to MRI/MRCP of the pancreas and transgastric endoscopic ultrasound for further evaluation. There is mild mural thickening of the colon question enterocolitis. There is scattered diverticulosis changes without diverticulitis. CT angio chest: No CT evidence of pulmonary embolus. No acute disease. Home Medications Scheduled Calcium Carbonate/Vitamin D3 (Calcium 500 mg-Vit D3 600 Unit) 1 Each Tablet, 1 EACH PO DAILY, (Reported) Cefdinir (Cefdinir) 300 Mg Capsule, 1 CAP PO BID Cranberry (Cranberry) 400 Mg Capsule, 400 MG PO DAILY, (Reported) Famotidine (Famotidine) 40 Mg Tablet, 40 MG PO DAILY, (Reported) Magnesium Oxide (Magnesium) 400 Mg Capsule, 400 MG PO DAILY, (Reported) Multivit-Min/Iron/Folic/Vit K1 (Centrum Chewables Adults Tab) 1 Each Tab.chew, 1 TAB PO DAILY, (Reported) Olanzapine (Olanzapine) 10 Mg Tablet, 10 MG PO ASDIRECTED, (Reported) ON DAYS 2-4 OF CHEMO Oxybutynin Chloride (Oxybutynin Chloride) 5 Mg Tablet, 5 MG PO DAILY, (Reported) Scheduled PRN Loperamide HCl (Loperamide) 2 Mg Capsule, 1 CAP PO QIDP PRN for DIARRHEA Ondansetron (Ondansetron Odt) 8 Mg Tab.rapdis, 8 MG PO TID PRN for NAUSEA OR VOMITING, (Reported) Prochlorperazine Maleate (Prochlorperazine Maleate) 10 Mg Tablet, 10 MG PO Q6H PRN for NAUSEA, (Reported) Allergies Coded Allergies: No Known Allergies (Unverified , 01/07/19) Past Medical History Medical History LOCALIZED PANCREATIC CANCER MRI abdomen 03/02/2020 showed a suspicious ill-defined heterogenous enhancing mass 2 x 1.6 in body of pancreas, with findings of moderate dilatation of the pancreatic duct. EUS with FNA 04/01/2020 showing pancreatic cystic mass in the pancreatic body with mass appearing to abut the celiac artery. No clear separation between the mass and the artery. Pathology showing atypical glandular cells. FNA second opinion from [facility] 04/13/2020 showing findings positive for malignancy, adenocarcinoma. Started preoperative/neoadjuvant FOLFIRINOX chemotherapy 04/26/2020. BREAST CANCER (INTRADUCTAL CARCINOMA RIGHT BREAST) JULY 2012 - FINISHED CHEMORADIATION IN FALL 2012. DEPRESSION - SITUATIONAL ANXIETY - SITUATIONAL ESOPHAGEAL REFLUX MULTINODULAR THYROID-DX [facility] 12/20/07 OVERACTIVE BLADDER OSTEOARTHRITIS INGUINAL HERNIAS BILATERALLY MICROSCOPIC HEMATURIA, FOLLOWED BY UROLOGY Surgical History TUBAL LIGATION [address] CROCKETT IN [place] 2006,[address] SANTOS 09/17/2012 INGUINAL HERNIA REPAIR, DR. CROCKETT 06/2013 DENTAL EXTRACTIONS X 2 09/2013 CYSTOSCOPY 04/30/2019 Left Infusaport. Family History FATHER: 57 YRS, [place], [place], EMPHYSEMA MOTHER: 87 YRS, BREAST CANCER AGE 72 MASTECTOMY; NIDDM STOMACH CANCER AT AGE 87 SIBLINGS: ALIVE, 5 SISTERS: 1. TEGAN: 61, ALIVE: HEALTHY, PRECANCEROUS PAP SMEARS , IBS 2. NATALYA: 55, ALIVE, CHRONIC BACK PAIN, DEPRESSION, OA, POLYPS 3. SHIRA: 49, ALIVE, HEALTHY, POLYPS 4. ROBIN: 45, ALIVE SON(S): ALIVE 40, 37 YRS, B[employer] [place] DAUGHTER(S): ALIVE 35 YRS, 2 BROTHER(S) , 5 SISTER(S) . 2 SON(S) , 1 DAUGHTER(S) . Social History * Smoker: former Smoker Alcohol: Denies Drugs: denies A-FIB/CHADSVASC A-FIB History Current/History of A-Fib/PAF?: No Review of Systems Constitutional: Reports: Fatigue; Denies: Chills, Fever, Night Sweats Eyes: Denies: Pain, Vision change ENT: Denies: Head Aches, Ear Pain, Dysphagia Skin: Denies: Rash, Lesions, Breakdown Pulmonary: Denies: Dyspnea, Cough Cardiovascular: Denies: Chest Pain, Palpitations, Orthopnea, Paroxysmal Noc. Dyspnea, Lt Headedness Gastrointestinal: Reports: Nausea, Vomiting, Abdominal Pain, Diarrhea Genitourinary: Denies: Dysuria, Frequency, Incontinence, Retention Hematologic: Denies: Bruising, Bleeding Excessively Musculoskeletal: Reports: Back Pain; Denies: Neck Pain, Joint Pain, Muscle Pain, Spasms Physical Examination General Exam: Positive: Alert, Cooperative, No Acute Distress Eye Exam: Positive: PERRLA, Conjunctiva & lids normal, EOMI; Negative: Sclera icteric ENT Exam: Positive: Atraumatic, Mucous membr. moist/pink, Pharynx Normal Neck Exam: Positive: Supple; Negative: JVD, thyromegaly Chest Exam: Positive: Clear to auscultation, Normal air movement Heart Exam: Positive: Rate Normal, Regular Rhythm, Normal S1, Normal S2; Negative: Murmurs, Rubs Abdomen Exam: Positive: Normal bowel sounds, Soft, Tenderness (in the epigastrium) Extremity Exam: Negative: Clubbing, Cyanosis, Edema Skin Exam: Positive: Nl turgor and temperature; Negative: Breakdown, Lesion Vital Signs Vital Signs Date Time Temp Pulse Resp B/P (MAP) Pulse Ox O2 Delivery O2 Flow Rate FiO2 08/14/20 10:48 18 08/14/20 10:45 129/78 (95) 08/14/20 10:42 74 97 08/14/20 09:27 97.9 Room Air Laboratory Data Labs 24H Laboratory Tests 2 08/14/20 10:01: Immature Granulocyte % (Auto) , Neutrophils (%) (Auto) , Nucleated Red Blood Cells % (auto) 0.0, Neutrophils 92H, Band Neutrophils 4, Lymphocytes (Manual) 2L, Monocytes (Manual) 1, Atypical Lymphocytes 1, Macrocytosis 1+, Platelet Estimate MARKED DECREASE, Immature Platelet Fraction 5.2, Anion Gap 8, Glomerular Filtration Rate > 60.0, Lactic Acid Level 2.2*H, Calcium Level 9.2, Total Bilirubin 0.8, Direct Bilirubin 0.2, Aspartate Amino Transf (AST/SGOT) 31, Alanine Aminotransferase (ALT/SGPT) 39, Alkaline Phosphatase 247H, Total Creati ne Kinase 27, Creatine Kinase MB < 1.0, Creatine Kinase MB Relative Index 3.70, Troponin I < 0.02, C-Reactive Protein, Quantitative 0.60H, Total Protein 7.3, Albumin 3.7, Albumin/Globulin Ratio 1.0L, Lipase 76 08/14/20 10:53: Coronavirus (COVID-19)(PCR) NEGATIVE, Influenza Type A (RT-PCR) NEGATIVE, Influenza Type B (RT-PCR) NEGATIVE, Respiratory Syncytial Virus (PCR) NEGATIVE CBC/BMP Laboratory Tests 08/14/20 10:01 Microbiology Microbiology 08/14/20 Blood Culture, Received Pending 08/14/20 Blood Culture, Received Pending Assessment/Plan 65 year old female with localized pancreatic cancer diagnosed in february this year has been getting preoperative chemotherapy. She received her 6th cycle of chemotherapy from Aug 09- aug 11. She received G-CSF on 08/11/20. She presents today for intractable nausea and vomiting for 1 days. She took all her antiemetic medications as prescribed but has not been able to keep anything down. She also reported 3 small diarrhea last night after which she took imodium. She has constant epigastric and left upper quadrant pain about 4/10 dull aching in nature which she feels is a little worse than usual. She is admitted for intractable vomiting, unable to tolerate any PO intake , possible enterocolitis, SIRS vs sepsis from an intraabdominal source. Intractable nausea and vomiting due to chemotherapy will give zofran , compazine, PPI clear liquids then advance as tolerated. Leucocytosis this i think is due to G-CSF that she received 2 days ago . I doubt she has any sepsis. Thrombocytopenia chemotherapy related SIRs Vs Sepsis she is having diarrhea CT abd reported as possible mild enterocolitis. I think this is due to chemotherapy. However will cover with antibiotics till cultures are back and procalcitonin is back. Lacticacidosis due to mild dehydration rather than sepsis. GERD IV PPI. LOCALIZED PANCREATIC CANCER MRI abdomen 03/02/2020 showed a suspicious ill-defined heterogenous enhancing mass 2 x 1.6 in body of pancreas, with findings of moderate dilatation of the pancreatic duct. EUS with FNA 04/01/2020 showing pancreatic cystic mass in the pancreatic body with mass appearing to abut the celiac artery. No clear separation between the mass and the artery. Pathology showing atypical glandular cells. FNA second opinion from [facility] 04/13/2020 showing findings positive for malignancy, adenocarcinoma. Started preoperative/neoadjuvant FOLFIRINOX chemotherapy 04/26/2020. Has appointment with oncosurgeon on 08/28/20 H/o BREAST CANCER (INTRADUCTAL CARCINOMA RIGHT BREAST) JULY 2012 FINISHED CHEMORADIATION IN FALL 2012. OVERACTIVE BLADDER oxybutinin. Plan / VTE VTE Prophylaxis Ordered?: Yes CE PETE MD Aug 14, 2020 12:46
[2020-08-15 06:55] VITALS: BP_SYST 121; BP_SYST 129; BP_DIAS 66; BP_DIAS 67
[2020-08-15 07:16] LABS: BASO % 0.2 % (0.0-1.0); EOS # 0.1 10^3/uL (0.0-0.5); EOS % 0.4 % (0.0-3.0); HEMATOCRIT 33.2 % (36.0-47.0); LYMPH # 1.1 10^3/uL (1.5-5.0); LYMPH % 4.3 % (24.0-44.0); MEAN CORPUSCULAR HEMOGLOBIN 33.1 pg (27.0-33.0); MEAN CORPUSCULAR HGB CONC 32.2 g/dl (32.0-36.5); MEAN CORPUSCULAR VOLUME 102.8 fl (80.0-96.0); MONO # 0.6 10^3/uL (0.0-0.8); MONO % 2.5 % (0.0-5.0); NEUTROPHILS # 18.3 10^3/uL (1.5-8.5); NEUTROPHILS % 71.9 % (36.0-66.0); RED BLOOD COUNT 3.23 10^6/uL (4.00-5.40); WHITE BLOOD COUNT 25.4 10^3/uL (4.0-10.0)
[2020-08-15 07:33] LABS: HEMOGLOBIN 10.7 g/dl (12.0-15.5); PLATELET COUNT, AUTOMATED 40 10^3/uL (150-450)
[2020-08-15 07:42] LABS: BLOOD UREA NITROGEN 14 MG/DL (7-18); CARBON DIOXIDE LEVEL 23 MEQ/L (21-32); CHLORIDE LEVEL 112 MEQ/L (98-107); CREATININE FOR GFR 0.82 MG/DL (0.55-1.30); GLOMERULAR FILTRATION RATE > 60.0 (>45); GLUCOSE, FASTING 114 MG/DL (70-100); POTASSIUM SERUM 3.9 MEQ/L (3.5-5.1); SODIUM LEVEL 141 MEQ/L (136-145)
[2020-08-15] MEDS: oxyBUTYnin 5 MG TAB PO SCH (08:02)
[2020-08-15] MEDS ORDERED: ENOXAPARIN 40MG/0.4ML SYRINGE (J1650 PER 10MG) SC SCH (09:00)
[2020-08-15] MEDS ORDERED: CEFD300CAP PO (11:56)
--- NOTE | 2020-08-15 12:06 | DS.PDOC ---
Discharge Summary General Date of Admission Aug 14, 2020 at 13:13 Date of Discharge 08/15/20 Discharge Summary PROCEDURES PERFORMED DURING STAY: [None]. DISCHARGE DIAGNOSES: Chemotherapy related nausea and vomiting Chemotherapy related enterocolitis Chemo related thrombocytopenia. Leucocytosis medication related SIRs SECONDARY DIAGNOSIS LOCALIZED PANCREATIC CANCER BREAST CANCER (INTRADUCTAL CARCINOMA RIGHT BREAST) JULY 2012, FINISHED CHEMORADIATION IN FALL 2012. DEPRESSION - SITUATIONAL ANXIETY - SITUATIONAL ESOPHAGEAL REFLUX MULTINODULAR THYROID-DX [facility] 12/20/07 OVERACTIVE BLADDER OSTEOARTHRITIS INGUINAL HERNIAS BILATERALLY MICROSCOPIC HEMATURIA, FOLLOWED BY UROLOGY, CYSTOSCOPY 04/30/[address] SANTOS 09/17/2012 COMPLICATIONS/CHIEF COMPLAINT: Intractable Vomiting Pancreatic Cancer. HOSPITAL COURSE: 65 year old female with localized pancreatic cancer diagnosed in february this year has been getting preoperative chemotherapy. She received her 6th cycle of chemotherapy from Aug 09- aug 11. She received G-CSF on 08/11/20. She presents today for intractable nausea and vomiting for 1 days. She took all her antiemetic medications as prescribed but has not been able to keep anything down. She also reported 3 small diarrhea last night after which she took imodium. She has constant epigastric and left upper quadrant pain about 4/10 dull aching in nature which she feels is a little worse than usual. She is admitted for intractable vomiting, unable to tolerate any PO intake , possible enterocolitis, SIRS vs sepsis from an intraabdominal source. Intractable nausea and vomiting due to chemotherapy continue zofran , compazine, tolerating oral diet Leucocytosis this i think is due to G-CSF that she received 2 days ago . I doubt she has any sepsis. Thrombocytopenia chemotherapy related SIRs Vs Sepsis No diarrhea after admission CT abd reported as possible mild enterocolitis. I think this is due to chemotherapy. However will cover with antibiotics till final cultures are back and procalcitonin is back. discharged with Cefdinir. Blood cultures prelim negative Lacticacidosis due to mild dehydration rather than sepsis. GERD Famotidine LOCALIZED PANCREATIC CANCER MRI abdomen 03/02/2020 showed a suspicious ill-defined heterogenous enhancing mass 2 x 1.6 in body of pancreas, with findings of moderate dilatation of the pancreatic duct. EUS with FNA 04/01/2020 showing pancreatic cystic mass in the pancreatic body with mass appearing to abut the celiac artery. No clear separation between the mass and the artery. Pathology showing atypical glandular cells. FNA second opinion from [facility] 04/13/2020 showing findings positive for malignancy, adenocarcinoma. Started preoperative/neoadjuvant FOLFIRINOX chemotherapy 04/26/2020. Has appointment with oncosurgeon on 08/28/20 H/o BREAST CANCER (INTRADUCTAL CARCINOMA RIGHT BREAST) JULY 2012 FINISHED CHEMORADIATION IN FALL 2012. OVERACTIVE BLADDER oxybutinin. DISCHARGE MEDICATIONS: Please see below. ALLERGIES: Please see below. PHYSICAL EXAMINATION ON DISCHARGE: VITAL SIGNS: Please see below. General Exam: Positive: Alert, Cooperative, No Acute Distress Eye Exam: Positive: PERRLA, Conjunctiva & lids normal, EOMI; Negative: Sclera icteric ENT Exam: Positive: Atraumatic, Mucous membr. moist/pink, Pharynx Normal Neck Exam: Positive: Supple; Negative: JVD, thyromegaly Chest Exam: Positive: Clear to auscultation, Normal air movement Heart Exam: Positive: Rate Normal, Regular Rhythm, Normal S1, Normal S2; Negative: Murmurs, Rubs Abdomen Exam: Positive: Normal bowel sounds, Soft, Tenderness (in the epigastrium) Extremity Exam: Negative: Clubbing, Cyanosis, Edema Skin Exam: Positive: Nl turgor and temperature; Negative: Breakdown, Lesion LABORATORY DATA: Please see below. ACTIVITY: [As tolerated]. DIET: As tolerated DISCHARGE PLAN: Home DISCHARGE INSTRUCTIONS: Follow up with oncology ITEMS TO FOLLOWUP ON ON OUTPATIENT: follow up final cultures follow up Procalcitonin level. DISCHARGE CONDITION: [Stable]. TIME SPENT ON DISCHARGE:35 minutes. Vital Signs/I&Os Vital Signs Date Time Temp Pulse Resp B/P (MAP) Pulse Ox O2 Delivery O2 Flow Rate FiO2 08/15/20 06:55 96.4 68 20 121/66 (84) 97 Room Air I&O- Last 24 Hours up to 6 AM 08/15/20 06:00 Intake Total 2420 ml Output Total 0 ml Balance 2420 ml Laboratory Data Labs 24H Laboratory Tests 2 08/14/20 15:19: Lactic Acid Followup at 4 Hours 1.6 08/15/20 06:36: Urine Color YELLOW, Urine Appearance CLEAR, Urine pH 5.0, Urine Specific [place] 1.049, Urine Protein NEGATIVE, Urine Glucose (UA) NEGATIVE, Urine Ketones NEGATIVE, Urine Blood NEGATIVE, Urine Nitrite NEGATIVE, Urine Bilirubin NEGATIVE, Urine Urobilinogen 0.2, Urine Leukocyte Esterase TRACEH, Urine WBC (Auto) 14H, Urine RBC (Auto) 3, Urine Hyaline Casts (Auto) 0, Urine Bacteria (Auto) NEGATIVE, Urine Squamous Epithelial Cells 1, Urine Mucus (Auto) SMALL, Urine Sperm (Auto) 08/15/20 06:58: Immature Granulocyte % (Auto) 20.7H, Neutrophils (%) (Auto) 71.9H, Lymphocytes (%) (Auto) 4.3L, Monocytes (%) (Auto) 2.5, Eosinophils (%) (Auto) 0.4, Basophils (%) (Auto) 0.2, Neutrophils # (Auto) 18.3H, Lymphocytes # (Auto) 1.1L, Monocytes # (Auto) 0.6, Eosinophils # (Auto) 0.1, Basophils # (Auto) 0.0, Nucleated Red Blood Cells % (auto) 0.0, Anion Gap 6L, Glomerular Filtration Rate > 60.0, Calcium Level 8.0L CBC/BMP Laboratory Tests 08/15/20 06:58 Microbiology Microbiology 08/15/20 Urine Culture, Received Pending 08/14/20 Blood Culture - Preliminary, Resulted No growth after 24 hours . All specim... 08/14/20 Blood Culture - Preliminary, Resulted No growth after 24 hours . All specim... Discharge Medications Scheduled Calcium Carbonate/Vitamin D3 (Calcium 500 mg-Vit D3 600 Unit) 1 Each Tablet, 1 EACH PO DAILY, (Reported) Cefdinir (Cefdinir) 300 Mg Capsule, 1 CAP PO BID Cranberry (Cranberry) 400 Mg Capsule, 400 MG PO DAILY, (Reported) Famotidine (Famotidine) 40 Mg Tablet, 40 MG PO DAILY, (Reported) Magnesium Oxide (Magnesium) 400 Mg Capsule, 400 MG PO DAILY, (Reported) Multivit-Min/Iron/Folic/Vit K1 (Centrum Chewables Adults Tab) 1 Each Tab.chew, 1 TAB PO DAILY, (Reported) Olanzapine (Olanzapine) 10 Mg Tablet, 10 MG PO ASDIRECTED, (Reported) ON DAYS 2-4 OF CHEMO Oxybutynin Chloride (Oxybutynin Chloride) 5 Mg Tablet, 5 MG PO DAILY, (Reported) Scheduled PRN Loperamide HCl (Loperamide) 2 Mg Capsule, 1 CAP PO QIDP PRN for DIARRHEA Ondansetron (Ondansetron Odt) 8 Mg Tab.rapdis, 8 MG PO TID PRN for NAUSEA OR VOMITING, (Reported) Prochlorperazine Maleate (Prochlorperazine Maleate) 10 Mg Tablet, 10 MG PO Q6H PRN for NAUSEA, (Reported) Allergies Coded Allergies: No Known Allergies (Unverified , 01/07/19) CE PETE MD Aug 15, 2020 11:58
[2020-08-16] MEDS ORDERED: CEFD1CAP8 PO (14:13)
== END 2020-08-15 13:33 | disposition home or self-care (01) | DRG 392 ==
LOC: M ED 09:27 → M ED INP 13:13 → ENRESERV 13:24 → M MS5PR 14:40
PROVIDERS: ADMIT Internal Medicine Nephrology; ATTEND Internal Medicine Nephrology
DX: R11.2 Nausea with vomiting, unspecified (principal); E87.2 Acidosis; C25.9 Malignant neoplasm of pancreas, unspecified; R19.7 Diarrhea, unspecified; D69.59 Other secondary thrombocytopenia; T45.1X5A Adverse effect of antineoplastic and immunosuppressive drugs, initial encounter; D72.829 Elevated white blood cell count, unspecified; K21.9 Gastro-esophageal reflux disease without esophagitis; F41.9 Anxiety disorder, unspecified; M19.90 Unspecified osteoarthritis, unspecified site; F32.9 Major depressive disorder, single episode, unspecified; Z85.3 Personal history of malignant neoplasm of breast; N32.81 Overactive bladder; E86.0 Dehydration; Z79.899 Other long term (current) drug therapy

== ENCOUNTER → 2020-10-11 | Outpatient (CLI) | payer MEDICARE, MEDICAID ==
[~2020-10-11] MED LIST changes: +CEFD1CAP8 PO; +CEFD300CAP PO; +KCL.075I3 IV; +ONDA8TAB8 PO; -[UNRECOGNIZED DRUG - CODE] IV
--- NOTE | 2020-10-11 15:25 | REP ---
INDICATION: BREAST CA ? GASTROPARESIS VS STOMACH CA. COMPARISON: None. TECHNIQUE/RADIOTRACER AND DOSE: Following the oral administration of 1.06 mCi technetium 99 M sulfur colloid in 2 scrambled eggs and 6 oz of water, multiple images of the upper abdomen are performed for 90 minutes in the anterior and posterior projections. FINDINGS: Gastric activity is measured. At the end of 90 minutes 28% of the ingested activity has emptied from the stomach. The T1 half is calculated to be 135 minutes. A normal T1/2 is 90 minutes. IMPRESSION: Mildly delayed gastric emptying. <Electronically signed by Romario Minor > 10/11/20 [id number]
== END ==
LOC: M RAD 12:25
PROVIDERS: ATTEND Internal Medicine Medical Oncology
DX: R63.4 Abnormal weight loss (principal); C50.919 Malignant neoplasm of unspecified site of unspecified female breast; K30 Functional dyspepsia
CPT/HCPCS: 78264; A9541

== ENCOUNTER → 2020-11-08 | Outpatient (CLI) | payer MEDICARE, MEDICAID ==
[~2020-11-08] MED LIST changes: +GASTROGRAFIN SOLUTION 30ML (Q9963) As Ordered ONE; +ISOVUE-370 76% 100ML VIAL As Ordered ONE
--- NOTE | 2020-11-08 13:38 | REP ---
INDICATION: PANCREATIC ADENOCARCINOMA COMPARISON: 08/14/2020, 05/14/2020 TECHNIQUE: Axial contrast enhanced images from the thoracic inlet to the upper abdomen with 100 ml Isovue 370 intravenous contrast material followed by CT of the abdomen and pelvis. Coronal and sagittal reformations obtained.. This CT examination was performed using the following dose reduction techniques: Automated exposure control, adjustment of mA and/or kv according to the patient's size, and use of iterative reconstruction technique. FINDINGS: Small stable chronic appearing non solid density inseparable from the superior aspect of the right major fissure possibly within the apical segment right lower lobe remains unchanged compared through 05/14/2020. The bilateral lung mello are otherwise well aerated and clear. No acute consolidation, suspicious nodule or mass. No effusion. No pneumothorax. No obvious axillary, hilar, or mediastinal adenopathy is appreciated. Thoracic aorta, pulmonary vasculature, and heart/pericardium are relatively normal. [id number] identified with tip in the SVC. Hypodense nodule/cyst to the thyroid gland are nonspecific. Musculoskeletal structures without acute osseous abnormality. IMPRESSION: No acute mediastinal or pleuroparenchymal process appreciated. <Electronically signed by Ramsey Ceballos > 11/08/20 [id number]
--- NOTE | 2020-11-08 13:52 | REP ---
INDICATION: PANCREATIC ADENOCARCINOMA. COMPARISON: 08/14/2020 TECHNIQUE: Axial contrast-enhanced images from the lung bases to the pubic symphysis using 100 cc Isovue 370 intravenous contrast material. Arterial phase and delayed phased images of the abdomen obtained along with coronal and sagittal reformations.. This CT examination was performed using the following dose reduction techniques: Automated exposure control, adjustment of mA and/or kv according to the patient's size, and the use of iterative reconstruction technique. FINDINGS: Liver, spleen, gallbladder, bilateral adrenal glands and kidneys are stable and essentially normal. 1.3 cm simple right renal cyst again noted. The pancreas is atrophic and again demonstrates mild ductal dilatation to the pancreatic head where small mass lesion on prior examinations was identified but poorly evaluated on current examination. No obvious increased size to the mass lesion is noted and no obvious inflammatory stranding or significant increased adenopathy noted. The enteric system including stomach, small, and large bowel appears normal. No evidence for obstruction or acute inflammatory process. Normal terminal ileum and appendix are identified in the right lower quadrant. Scattered sigmoid diverticula noted without acute diverticulitis. Pelvis demonstrates normal bladder and age-appropriate uterus/adnexa. Evidence for prior bilateral inguinal hernia repair. No ascites. No free air. No intraperitoneal or retroperitoneal adenopathy. Abdominal aorta and vasculature appear normal. Musculoskeletal structures are intact and without acute osseous abnormality. IMPRESSION: 1. Pancreatic mass is poorly evaluated on current examination and certainly does not appear increased in size or with increased surrounding inflammatory stranding or adenopathy. 2. Stable nonacute findings as above. <Electronically signed by Ramsey Ceballos > 11/08/20 [id number]
== END ==
LOC: M RAD 09:50
PROVIDERS: ATTEND Surgery
DX: C25.9 Malignant neoplasm of pancreas, unspecified (principal)
CPT/HCPCS: 71260; 74178; Q9963; Q9967

== ENCOUNTER → 2020-11-26 | Outpatient (CLI) | payer MEDICARE, MEDICAID ==
[~2020-11-26] MED LIST changes: +COVI100V IM; -GASTROGRAFIN SOLUTION 30ML (Q9963) As Ordered ONE; -ISOVUE-370 76% 100ML VIAL As Ordered ONE
[2020-11-26 12:27] LABS: EOS # 0.1 10^3/uL (0.0-0.5); EOS % 4.2 % (0.0-3.0); HEMATOCRIT 37.5 % (36.0-47.0); HEMOGLOBIN 12.3 g/dl (12.0-15.5); LYMPH # 0.9 10^3/uL (1.5-5.0); LYMPH % 28.6 % (24.0-44.0); MEAN CORPUSCULAR HEMOGLOBIN 34.3 pg (27.0-33.0); MEAN CORPUSCULAR HGB CONC 32.8 g/dl (32.0-36.5); MEAN CORPUSCULAR VOLUME 104.5 fl (80.0-96.0); MONO # 0.5 10^3/uL (0.0-0.8); NEUTROPHILS # 1.5 10^3/uL (1.5-8.5); NEUTROPHILS % 48.9 % (36.0-66.0); PLATELET COUNT, AUTOMATED 108 10^3/uL (150-450); RED BLOOD COUNT 3.59 10^6/uL (4.00-5.40); WHITE BLOOD COUNT 3.1 10^3/uL (4.0-10.0)
[2020-11-26 12:47] LABS: ALBUMIN 3.6 GM/DL (3.2-5.2); ALT/SGPT 40 U/L (12-78); BILIRUBIN,DIRECT 0.2 MG/DL (0.0-0.2); BILIRUBIN,TOTAL 0.6 MG/DL (0.2-1.0); BLOOD UREA NITROGEN 10 MG/DL (7-18); CALCIUM LEVEL 9.6 MG/DL (8.8-10.2); CARBON DIOXIDE LEVEL 29 MEQ/L (21-32); CHLORIDE LEVEL 105 MEQ/L (98-107); CREATININE FOR GFR 0.76 MG/DL (0.55-1.30); GLOMERULAR FILTRATION RATE > 60.0 (>45); GLUCOSE, FASTING 105 MG/DL (70-100); POTASSIUM SERUM 3.9 MEQ/L (3.5-5.1); SODIUM LEVEL 139 MEQ/L (136-145); TOTAL PROTEIN 6.6 GM/DL (6.4-8.2)
[2020-11-26 12:48] LABS: PREALBUMIN 18.1 MG/DL (20.0-40.0)
[2020-11-26 13:23] LABS: CA19-9 TUMOR MARKER,CARBOHYDRA 14.9 U/ML (<35.0)
== END ==
LOC: M LAB 11:23
PROVIDERS: ATTEND Surgery
DX: C25.9 Malignant neoplasm of pancreas, unspecified (principal)

== ENCOUNTER → 2020-12-08 | Outpatient (CLI) | payer MEDICARE, MEDICAID ==
[2020-12-08 12:47] LABS: BASO # 0.1 10^3/uL (0.0-0.2); BASO % 1.5 % (0.0-1.0); EOS # 0.3 10^3/uL (0.0-0.5); EOS % 6.1 % (0.0-3.0); HEMATOCRIT 41.3 % (36.0-47.0); HEMOGLOBIN 13.7 g/dl (12.0-15.5); LYMPH # 1.2 10^3/uL (1.5-5.0); LYMPH % 24.4 % (24.0-44.0); MEAN CORPUSCULAR HEMOGLOBIN 33.5 pg (27.0-33.0); MEAN CORPUSCULAR HGB CONC 33.2 g/dl (32.0-36.5); MONO # 0.5 10^3/uL (0.0-0.8); MONO % 9.5 % (2.0-8.0); NEUTROPHILS # 2.8 10^3/uL (1.5-8.5); NEUTROPHILS % 58.3 % (36.0-66.0); PLATELET COUNT, AUTOMATED 133 10^3/uL (150-450); RED BLOOD COUNT 4.09 10^6/uL (4.00-5.40); WHITE BLOOD COUNT 4.8 10^3/uL (4.0-10.0)
[2020-12-08 13:11] LABS: ALBUMIN 3.9 GM/DL (3.2-5.2); ALT/SGPT 37 U/L (12-78); BILIRUBIN,DIRECT 0.2 MG/DL (0.0-0.2); BILIRUBIN,TOTAL 0.6 MG/DL (0.2-1.0); BLOOD UREA NITROGEN 18 MG/DL (7-18); CALCIUM LEVEL 10.1 MG/DL (8.8-10.2); CARBON DIOXIDE LEVEL 27 MEQ/L (21-32); CHLORIDE LEVEL 104 MEQ/L (98-107); CREATININE FOR GFR 0.84 MG/DL (0.55-1.30); GLOMERULAR FILTRATION RATE > 60.0 (>45); GLUCOSE, FASTING 128 MG/DL (70-100); POTASSIUM SERUM 4.5 MEQ/L (3.5-5.1); PREALBUMIN 24.8 MG/DL (20.0-40.0); SODIUM LEVEL 138 MEQ/L (136-145); TOTAL PROTEIN 7.5 GM/DL (6.4-8.2)
[2020-12-08 16:24] LABS: CA19-9 TUMOR MARKER,CARBOHYDRA 13.2 U/ML (<35.0)
== END ==
LOC: M LAB 11:44
PROVIDERS: ATTEND Surgery
DX: C25.9 Malignant neoplasm of pancreas, unspecified (principal)

== ENCOUNTER → 2020-12-31 | Outpatient (CLI) | payer MEDICARE, MEDICAID ==
[~2020-12-31] MED LIST changes: +ARIM1TAB5 PO
== END ==
LOC: M LABSMTC 09:31
PROVIDERS: ATTEND Nurse Practitioner Family
DX: Z20.822 Contact with and (suspected) exposure to COVID-19 (principal)

== ENCOUNTER → 2021-01-14 | Outpatient (CLI) | payer MEDICARE, MEDICAID ==
[2021-01-14 11:04] LABS: HEMATOCRIT 35.8 % (36.0-47.0); HEMOGLOBIN 11.6 g/dl (12.0-15.5); MEAN CORPUSCULAR HEMOGLOBIN 32.8 pg (27.0-33.0); MEAN CORPUSCULAR HGB CONC 32.4 g/dl (32.0-36.5); MEAN CORPUSCULAR VOLUME 101.1 fl (80.0-96.0); PLATELET COUNT, AUTOMATED 412 10^3/uL (150-450); RED BLOOD COUNT 3.54 10^6/uL (4.00-5.40)
[2021-01-14 11:31] LABS: BLOOD UREA NITROGEN 11 MG/DL (7-18); CALCIUM LEVEL 9.9 MG/DL (8.8-10.2); CARBON DIOXIDE LEVEL 33 MEQ/L (21-32); CHLORIDE LEVEL 100 MEQ/L (98-107); CREATININE FOR GFR 0.83 MG/DL (0.55-1.30); GLOMERULAR FILTRATION RATE > 60.0 (>45); GLUCOSE, FASTING 145 MG/DL (70-100); POTASSIUM SERUM 4.5 MEQ/L (3.5-5.1); SODIUM LEVEL 136 MEQ/L (136-145)
== END ==
LOC: M LAB 10:08
PROVIDERS: ATTEND Nurse Practitioner Adult Health
DX: C25.9 Malignant neoplasm of pancreas, unspecified (principal)

== ENCOUNTER 2021-02-16 15:49 | Inpatient (IN) | payer MEDICARE, MEDICAID ==
[~2021-02-16] VITALS: Ht 170.2 cm; Wt 65.9 kg
[2021-02-16] MEDS ORDERED: OXYC-517 (16:04)
[2021-02-16] MEDS ORDERED: NS 1,000 ML IV ONE ×2 (16:35→18:10)
[2021-02-16] MEDS ORDERED: METOCLOPRAMIDE INJ 10MG/2ML VIAL (J2765 PER 1) IV ONE (16:35)
[2021-02-16 17:39] LABS: BLOOD UREA NITROGEN 30 MG/DL (7-18); CALCIUM LEVEL 9.7 MG/DL (8.8-10.2); CARBON DIOXIDE LEVEL 30 MEQ/L (21-32); CHLORIDE LEVEL 100 MEQ/L (98-107); CREATININE FOR GFR 0.93 MG/DL (0.55-1.30); GLOMERULAR FILTRATION RATE > 60.0 (>45); GLUCOSE, FASTING 179 MG/DL (70-100); POTASSIUM SERUM 4.6 MEQ/L (3.5-5.1); SODIUM LEVEL 139 MEQ/L (136-145)
[2021-02-16] MEDS ORDERED: PROMETHAZINE INJ 25 MG/ML VIAL (J2550) IV ONE (18:15)
[2021-02-16 18:18] LABS: BASO % 0.1 % (0.0-1.0); HEMATOCRIT 43.6 % (36.0-47.0); LYMPH # 1.6 10^3/uL (1.5-5.0); LYMPH % 7.7 % (24.0-44.0); MEAN CORPUSCULAR HEMOGLOBIN 32.5 pg (27.0-33.0); MEAN CORPUSCULAR HGB CONC 33.7 g/dl (32.0-36.5); MEAN CORPUSCULAR VOLUME 96.2 fl (80.0-96.0); MONO # 1.8 10^3/uL (0.0-0.8); MONO % 8.6 % (2.0-8.0); NEUTROPHILS # 17.6 10^3/uL (1.5-8.5); NEUTROPHILS % 82.9 % (36.0-66.0); PLATELET COUNT, AUTOMATED 319 10^3/uL (150-450); RED BLOOD COUNT 4.53 10^6/uL (4.00-5.40)
[2021-02-16 18:19] LABS: HEMOGLOBIN 14.7 g/dl (12.0-15.5); WHITE BLOOD COUNT 21.2 10^3/uL (4.0-10.0)
[2021-02-16] MEDS ORDERED: ONDANSETRON 4MG/2ML VIAL IV ONE (19:25)
[2021-02-16] MEDS ORDERED: ISOVUE-370 76% 100ML VIAL As Ordered ONE (19:27)
[2021-02-16 19:56] LABS: ALT/SGPT 34 U/L (12-78); BILIRUBIN,DIRECT 0.2 MG/DL (0.0-0.2); BILIRUBIN,TOTAL 0.8 MG/DL (0.2-1.0); LIPASE 75 U/L (73-393)
[2021-02-16] MEDS ORDERED: HALOPERIDOL 5MG/ML VIAL (J1630 PER 1) IV ONE (20:20)
--- NOTE | 2021-02-16 21:09 | REPVR ---
PROCEDURE INFORMATION: Exam: CT Abdomen And Pelvis With Contrast Exam date and time: 02/16/2021 7:42 PM Age: 65 years old Clinical indication: Vomiting; Abdominal pain; Localized; Upper; Additional info: Upper abdominal pain/vomiting TECHNIQUE: Imaging protocol: Computed tomography of the abdomen and pelvis with contrast. Radiation optimization: All CT scans at this facility use at least one of these dose optimization techniques: automated exposure control; mA and/or kV adjustment per patient size (includes targeted exams where dose is matched to clinical indication); or iterative reconstruction. Contrast material: ISOVUE 370; Contrast volume: 100 ml; Contrast route: INTRAVENOUS (IV); COMPARISON: CT ABD PELVIS W/O FOL BY WIT 11/08/2020 11:06 AM FINDINGS: Lungs: Parenchymal opacities in the inferior aspect of the lingular and left lower lobe may represent chronic changes although not present on the prior study of 11/08/2020. Atelectasis or parenchymal infiltrates to be excluded. Liver: There is enlargement of the left and caudate lobes of the liver as well as a lobular surface contour of the liver. Findings may indicate the presence of cirrhosis in this patient with no reported history of chronic liver disease. Hypodensities demonstrated in the anterior aspect of the medial segment of the left lobe measuring 1.3 cm and in the lateral aspect of the right lobe measuring 6.5 mm of indeterminate etiology. Gallbladder and bile ducts: There has been a cholecystectomy. Pancreas: Status post distal pancreatectomy. Soft tissue surrounds the celiac artery. Unclear if this is postsurgical or represents neoplastic changes. Spleen: Status post interval splenectomy. Adrenal glands: Normal. No mass. Kidneys and ureters: 1.2 cm simple cyst upper pole right kidney. No follow-up suggested. Mild bilateral hydroureteronephrosis without obstructing mass or calculus. Stomach and bowel: Mild diverticulosis is present in the left colon. No diverticulitis. Proximal jejunum demonstrates marked wall thickening with mural stratification, findings consistent with bowel wall edema of any etiology including infection, ischemia or inflammatory bowel disease. Findings may explain patient's left upper quadrant discomfort. Appendix: No evidence of appendicitis. Intraperitoneal space: Mesenteric edema most pronounced in the anterior and right side of the abdomen. Finding of uncertain significance. Clinical correlation to exclude infection such as peritonitis suggested. Vasculature: See "Pancreas" finding. Lymph nodes: Unremarkable. No enlarged lymph nodes. Urinary bladder: Moderate dilatation of the urinary bladder. Clinical correlation to urinary retention suggested. Bladder appears intrinsically unremarkable. Reproductive: Unremarkable as visualized. Bones/joints: Moderate central spinal stenosis at L1-L2, L2-L3 with severe central spinal stenosis at L3-L4 and L4-L5. Soft tissues: Unremarkable. IMPRESSION: 1. Parenchymal opacities in the inferior aspect of the lingular and left lower lobe may represent chronic changes although not present on the prior study of 11/08/2020. Atelectasis or parenchymal infiltrates to be excluded. 2. Possible cirrhosis in this patient with no reported history of chronic liver disease. Hypodensities demonstrated in the anterior aspect of the medial segment of the left lobe measuring 1.3 cm and in the lateral aspect of the right lobe measuring 6.5 mm of indeterminate etiology. 3. Status post interval splenectomy. 4. There has been a cholecystectomy. 5. Mild bilateral hydroureteronephrosis without obstructing mass or calculus. 6. Moderate dilatation of the urinary bladder. Clinical correlation to urinary retention suggested. Bladder appears intrinsically unremarkable. 7. Mild diverticulosis is present in the left colon. No diverticulitis. 8. Mesenteric edema most pronounced in the anterior and right side of the abdomen. Finding of uncertain significance. Clinical correlation to exclude infection such as peritonitis suggested. 9. Status post distal pancreatectomy. Soft tissue surrounds the celiac artery. Unclear if this is postsurgical or represents neoplastic changes. 10. Proximal jejunum demonstrates marked wall thickening with mural stratification, findings consistent with bowel wall edema of any etiology including infection, ischemia or inflammatory bowel disease. Findings may explain patient's left upper quadrant discomfort. COMMENTS: Consistent with the [employer]'s Incidental Findings Committee white paper (J Am Joanne Radiol 2018): Any incidental renal lesion less than 1 cm or classified as too small to characterize, or any incidental cystic renal lesion characterized as simple-appearing, is likely benign. No follow-up imaging is recommended for these lesions per consensus recommendations based on imaging criteria. Electronically signed by: Pavel Mann On 02/16/2021 21:08:35 PM
[2021-02-16] MEDS ORDERED: NS 1,000 ML IV SCH (21:35)
[2021-02-16 22:19] LABS: BASO % 0.1 % (0.0-1.0); HEMATOCRIT 38.5 % (36.0-47.0); HEMOGLOBIN 12.9 g/dl (12.0-15.5); LYMPH # 1.5 10^3/uL (1.5-5.0); LYMPH % 7.5 % (24.0-44.0); MEAN CORPUSCULAR HEMOGLOBIN 32.7 pg (27.0-33.0); MEAN CORPUSCULAR HGB CONC 33.5 g/dl (32.0-36.5); MEAN CORPUSCULAR VOLUME 97.7 fl (80.0-96.0); MONO # 1.4 10^3/uL (0.0-0.8); NEUTROPHILS # 17.2 10^3/uL (1.5-8.5); NEUTROPHILS % 84.8 % (36.0-66.0); PLATELET COUNT, AUTOMATED 299 10^3/uL (150-450); RED BLOOD COUNT 3.94 10^6/uL (4.00-5.40); WHITE BLOOD COUNT 20.3 10^3/uL (4.0-10.0)
[2021-02-16] MEDS ORDERED: PANT40TA29 PO (22:20)
[2021-02-16] MEDS ORDERED: VITMTA PO (22:20)
[2021-02-16] MEDS ORDERED: ACETAMINOPHEN TAB 650MG DOSE (2X325MG) PO PRN (22:25)
[2021-02-16] MEDS ORDERED: ONDANSETRON 4MG/2ML VIAL IV PRN (22:25)
[2021-02-16] MEDS ORDERED: MAALOX 30 ML SUSP *UDC PO PRN (22:25)
[2021-02-16] MEDS ORDERED: MOM 30ML SUSPENSION UDC PO PRN (22:25)
[2021-02-16 22:27] LABS: RSV AMPLIFICATION NEGATIVE (NEGATIVE)
[2021-02-16] MEDS ORDERED: OLANZapine 10 MG TAB PO SCH (22:30)
--- NOTE | 2021-02-16 22:36 | HPEPDOC ---
[facility] Medical History & Physical Date of Admission Feb 16, 2021 Date of Service: Feb 16, 2021 Attending Physician: DELIA LINDA MD History and Physical CHIEF COMPLAINT: [65 y/o female c/o nausea, vomiting x1 day] HISTORY OF PRESENT ILLNESS: [This is a 65 y/o female with a pmh of pancreatic cancer currently undergoing chemotherapy at our facility, gerd, hx of breast ca s/p lumpectomy, depression and anxiety who presents to the ED after developing intractable nausea and vomiting at chemo today. Patient states that she has experienced about 12 episodes of nonbloody emesis since this morning. Patient states that she has had repeated retching without vomiting as well. Patient has had persistent nausea. Patient states she is having some abdominal pain that comes and goes and is mostly focused in her luq. Patient's symptoms improved some in the ed with zofran and reglan. As of my exam of patient, she states that her main complaint is of acid reflux. Patient states that she feels as though she is bringing up only acid when she retches and is having burning pain in her epigastrum. Patient admits to some associated subjective fevers and chills. Patient denies headaches, cough, wheezing, sob, dysuria, constipation, diarrhea, peripheral edema.] PAST MEDICAL HISTORY: 1. [See HPI PAST SURGICAL HISTORY: 1. [Right sided mastectomy]. 2. [Infusaport insertion]. 3. [Cholecystectomy 4. Partial pancreatectomy 5. Splenectomy 6. Tubal ligation]. SOCIAL HISTORY: Tobacco use:[Denies] ETOH: [Denies] Illicit drug use: [Denies] FAMILY HISTORY: Reviewed - non pertinent ALLERGIES: Please see below. REVIEW OF SYSTEMS: CONSTITUTIONAL: [See HPI]. HEENT: [Denies uri sx]. CARDIOVASCULAR: [See HPI]. RESPIRATORY: [See HPI]. GASTROINTESTINAL: [See HPI]. GENITOURINARY: [See HPI]. SKIN: [Denies rash]. MUSCULOSKELETAL: [Denies acute joint/back pain]. NEUROLOGICAL: [Denies paresthesias, syncope]. ENDOCRINE: [Denies hx of DM]. HEMATOLOGIC/LYMPHATIC: [Denies easy bruising]. HOME MEDICATIONS: Please see below. PHYSICAL EXAMINATION: VITAL SIGNS: Please see below. GENERAL APPEARANCE: [This is a 65 y/o female who appears very uncomfortable. She is constantly shifting positions in bed and reaching for her emesis bag.]. HEENT: [No mass or lesion. EOMI. No scleral icterus. Nares patent. Oral mucosa dry without erythema.]. CARDIOVASCULAR: [Borderline tachy rate, normal rhythm. No murmurs, rubs, gal lops]. LUNGS: [Good air flow b/l. No wheezing, rales, rhonchi.]. ABDOMEN: [Soft, nontender. Non distended.]. MUSCULOSKELETAL: [No joint deformity]. EXTREMITIES: [No peripheral edema. No overlying skin changes. Pulses intact.]. NEUROLOGICAL: [Speech clear. A+Ox3. No focal deficits.]. PSYCHIATRIC: [Mood and affect appropriate.]. LABORATORY DATA: See below. IMAGING: [CT Abd/pelvis: FINDINGS: Lungs: Parenchymal opacities in the inferior aspect of the lingular and left lower lobe may represent chronic changes although not present on the prior study of 11/08/2020. Atelectasis or parenchymal infiltrates to be excluded. Liver: There is enlargement of the left and caudate lobes of the liver as well as a lobular surface contour of the liver. Findings may indicate the presence of cirrhosis in this patient with no reported history of chronic liver disease. Hypodensities demonstrated in the anterior aspect of the medial segment of the left lobe measuring 1.3 cm and in the lateral aspect of the right lobe measuring 6.5 mm of indeterminate etiology. Gallbladder and bile ducts: There has been a cholecystectomy. Pancreas: Status post distal pancreatectomy. Soft tissue surrounds the celiac artery. Unclear if this is postsurgical or represents neoplastic changes. Spleen: Status post interval splenectomy. Adrenal glands: Normal. No mass. Kidneys and ureters: 1.2 cm simple cyst upper pole right kidney. No follow-up suggested. Mild bilateral hydroureteronephrosis without obstructing mass or calculus. Stomach and bowel: Mild diverticulosis is present in the left colon. No diverticulitis. Proximal jejunum demonstrates marked wall thickening with mural stratification, findings consistent with bowel wall edema of any etiology including infection, ischemia or inflammatory bowel disease. Findings may explain patient's left upper quadrant discomfort. Appendix: No evidence of appendicitis. Intraperitoneal space: Mesenteric edema most pronounced in the anterior and right side of the abdomen. Finding of uncertain significance. Clinical correlation to exclude infection such as peritonitis suggested. Vasculature: See "Pancreas" finding. Lymph nodes: Unremarkable. No enlarged lymph nodes. Urinary bladder: Moderate dilatation of the urinary bladder. Clinical correlation to urinary retention suggested. Bladder appears intrinsically unremarkable. Reproductive: Unremarkable as visualized. Bones/joints: Moderate central spinal stenosis at L1-L2, L2-L3 with severe central spinal stenosis at L3-L4 and L4-L5. Soft tissues: Unremarkable. IMPRESSION: 1. Parenchymal opacities in the inferior aspect of the lingular and left lower lobe may represent chronic changes although not present on the prior study of 11/08/2020. Atelectasis or parenchymal infiltrates to be excluded. 2. Possible cirrhosis in this patient with no reported history of chronic liver disease. Hypodensities demonstrated in the anterior aspect of the medial segment of the left lobe measuring 1.3 cm and in the lateral aspect of the right lobe measuring 6.5 mm of indeterminate etiology. 3. Status post interval splenectomy. 4. There has been a cholecystectomy. 5. Mild bilateral hydroureteronephrosis without obstructing mass or calculus. 6. Moderate dilatation of the urinary bladder. Clinical correlation to urinary retention suggested. Bladder appears intrinsically unremarkable. 7. Mild diverticulosis is present in the left colon. No diverticulitis. 8. Mesenteric edema most pronounced in the anterior and right side of the abdomen. Finding of uncertain significance. Clinical correlation to exclude infection such as peritonitis suggested. 9. Status post distal pancreatectomy. Soft tissue surrounds the celiac artery. Unclear if this is postsurgical or represents neoplastic changes. 10. Proximal jejunum demonstrates marked wall thickening with mural stratification, findings consistent with bowel wall edema of any etiology including infection, ischemia or inflammatory bowel disease. Findings may explain patient's left upper quadrant discomfort. ] MICROBIOLOGY: Please see below. ASSESSMENT: [This is a 65 y/o female with a pmh of pancreatic cancer currently undergoing chemotherapy at our facility, gerd, hx of breast ca s/p lumpectomy, depression and anxiety who presents to the ED after developing intractable nausea and vomiting at chemo today.]. . PLAN: 1. [Nausea/vomiting - 2/2 chemotherapy - ED providers communicated with Dr. Grady, heme/onc, who recommended fluids, antiemetics, and to stop chemotherapy per patient's wishes - Patient received 2L NS bolus in the ED as well as zofran and reglan - Will continue maintenance IVF on the floor - Zofran for nausea - Patient began to c/o gerd/esophagitis type symptoms after tx in the ed, will begin iv protonix bid and carafate - Will continue at home famotidine - Admit to med surg for symptomatic tx 2. Leukocytosis - At this time, it is more likely that patient's leukocytosis is related to her cancer and chemotherapy regimen rather than infection. - Patient has some borderline infectious-type findings on abdominal ct i.e. abdominal wall edema and possible lower lung infiltrates, however is not presenting like an intra-abdominal or respiratory infection. There is no other sirs criteria, diarrhea, constipation, dark stools, cough or wheezing lung sounds. I will not be starting abx at this time - Will trend white count 3. Urinary retention - Patient had moderate bladder distention, b/l hydro on ct. Found to have post void residual of 516mL in the ED. - I straight cath'd pt and sent urine for UA which was unremarkable. - Retention most likely secondary to at home ditropan. Will hold this med. - Monitor urine output 4. Pancreatic ca - Patient will need to decide if she wishes to move forward with chemotherapy, as for now she has requested to stop her infusions. DVT prophylaxis - Lovenox ]. Vital Signs Vital Signs Date Time Temp Pulse Resp B/P (MAP) Pulse Ox O2 Delivery O2 Flow Rate FiO2 02/16/21 20:26 99.3 77 18 190/86 (120) 95 Room Air Laboratory Data Labs 24H Laboratory Tests 2 02/16/21 16:40: Immature Granulocyte % (Auto) 0.7, Neutrophils (%) (Auto) 82.9H, Lymphocytes (%) (Auto) 7.7L, Monocytes (%) (Auto) 8.6H, Eosinophils (%) (Auto) 0.0, Basophils (%) (Auto) 0.1, Neutrophils # (Auto) 17.6H, Lymphocytes # (Auto) 1.6, Monocytes # (Auto) 1.8H, Eosinophils # (Auto) 0.0, Basophils # (Auto) 0.0, Nucleated Red Blood Cells % (auto) 0.1H, Anion Gap 9, Glomerular Filtration Rate > 60.0, Calcium Level 9.7, Total Bilirubin 0.8, Direct Bilirubin 0.2, Aspartate Amino Transf (AST/SGOT) 33, Alanine Aminotransferase (ALT/SGPT) 34, Alkaline Phosph atase 232H, Total Protein 8.0, Albumin 4.0, Albumin/Globulin Ratio 1.0L, Lipase 75 02/16/21 21:39: Coronavirus (COVID-19)(PCR) NEGATIVE, Influenza Type A (RT-PCR) NEGATIVE, Influenza Type B (RT-PCR) NEGATIVE, Respiratory Syncytial Virus (PCR) NEGATIVE 02/16/21 22:08: Immature Granulocyte % (Auto) 0.6, Neutrophils (%) (Auto) 84.8H, Lymphocytes (%) (Auto) 7.5L, Monocytes (%) (Auto) 7.0, Eosinophils (%) (Auto) 0.0, Basophils (%) (Auto) 0.1, Neutrophils # (Auto) 17.2H, Lymphocytes # (Auto) 1.5, Monocytes # (Auto) 1.4H, Eosinophils # (Auto) 0.0, Basophils # (Auto) 0.0, Nucleated Red Blood Cells % (auto) 0.0 CBC/BMP Laboratory Tests 02/16/21 16:40 02/16/21 22:08 Home Medications Scheduled Anastrozole (Anastrozole) 1 Mg Tablet, 1 TAB PO DAILY Calcium Carbonate/Vitamin D3 (Calcium 500 mg-Vit D3 600 Unit) 1 Each Tablet, 1 EACH PO DAILY Cranberry (Cranberry) 400 Mg Capsule, 400 MG PO DAILY Famotidine (Famotidine) 40 Mg Tablet, 40 MG PO DAILY Magnesium Oxide (Magnesium) 400 Mg Capsule, 400 MG PO BID Multivitamins (Thera M Plus Tablet) 1 Each Tablet, 1 TAB PO DAILY Olanzapine (Olanzapine) 10 Mg Tablet, 10 MG PO ASDIRECTED ON DAYS 2-4 OF CHEMO Oxybutynin Chloride (Oxybutynin Chloride) 5 Mg Tablet, 5 MG PO BID Pantoprazole Sodium (Pantoprazole Sodium) 40 Mg Tablet.dr, 40 MG PO DAILY Scheduled PRN Ondansetron (Ondansetron Odt) 8 Mg Tab.rapdis, 8 MG PO Q8H PRN for NAUSEA OR VOMITING Prochlorperazine Maleate (Prochlorperazine Maleate) 10 Mg Tablet, 10 MG PO Q6H PRN for NAUSEA Allergies Coded Allergies: No Known Allergies (Unverified , 01/07/19) A-FIB/CHADSVASC A-FIB History Current/History of A-Fib/PAF?: No Attending Note Attending Note time of service 10:05pm is a 65 yr old w pancreatic adenocarcinoma, right breast intraductal carcinoma, anxiety depression and GERD who presented w c/o n/v. Her physical exam was remarkable for alopecia, slim build, and generalized pallor. She will be admitted for dehydration 2/2 chemo induced n/v. Despite the leucocytosis she doesnt have SIRS therefore we will hold of abx. We will also ask the day time team to touch base with her School Business Manager to determine if Palliative Care and or Hospice consults are appropriate. rest per [facility] H&Ps HERLINDA BUTLER Feb 16, 2021 22:36 DELIA LINDA MD Feb 17, 2021 02:30
[2021-02-16 22:40] LABS: BLOOD UREA NITROGEN 26 MG/DL (7-18); CALCIUM LEVEL 8.8 MG/DL (8.8-10.2); CARBON DIOXIDE LEVEL 31 MEQ/L (21-32); CHLORIDE LEVEL 103 MEQ/L (98-107); CREATININE FOR GFR 0.81 MG/DL (0.55-1.30); GLOMERULAR FILTRATION RATE > 60.0 (>45); GLUCOSE, FASTING 190 MG/DL (70-100); POTASSIUM SERUM 3.7 MEQ/L (3.5-5.1); SODIUM LEVEL 141 MEQ/L (136-145)
[2021-02-16] MEDS ORDERED: LIDOCAINE 2% 5ML JELLY UROJET TOP ONE (22:40)
[2021-02-16] MEDS: SUCRALFATE 1 GM TAB PO SCH (22:44)
[2021-02-16] MEDS: PANTOPRAZOLE 40MG VIAL (C9113 PER 1) IV SCH (22:45)
[2021-02-16] MEDS: NS 1,000 ML IV SCH (22:45)
[2021-02-16 23:14] LABS: APPEARANCE, URINE CLEAR (CLEAR); BACTERIA, URINE AUTO NEGATIVE (NEGATIVE); BILIRUBIN, URINE AUTO NEGATIVE (NEGATIVE); BLOOD, URINE BLOOD NEGATIVE (NEGATIVE); COLOR, URINE YELLOW (YELLOW); GLUCOSE, URINE (UA) AUTO 1+ mg/dL (NEGATIVE); KETONE, URINE AUTO TRACE mg/dL (NEGATIVE); LEUKOCYTE ESTERASE, URINE AUTO NEGATIVE (NEGATIVE); NITRITE, URINE AUTO NEGATIVE (NEGATIVE); PROTEIN, URINE AUTO NEGATIVE (NEGATIVE); RBC, URINE AUTO 1 /HPF (0-3); SPECIFIC GRAVITY URINE AUTO 1.025 (1.002-1.035); SQUAMOUS EPITHELIAL CELL UR AU 0 /HPF (0-6); UROBILINOGEN, URINE AUTO 0.2 mg/dL (0.0-2.0); WBC, URINE AUTO 1 /HPF (0-3)
[2021-02-16 23:46] VITALS: BP 143/69
[2021-02-17] MEDS: SODIUM CHLORIDE 0.9% INJ 10 ML SYR IV PRN (05:01)
[2021-02-17 05:05] VITALS: BP 125/71
[2021-02-17 05:34] LABS: HEMOGLOBIN 11.8 g/dl (12.0-15.5); MEAN CORPUSCULAR HEMOGLOBIN 32.2 pg (27.0-33.0); MEAN CORPUSCULAR HGB CONC 32.8 g/dl (32.0-36.5); MEAN CORPUSCULAR VOLUME 98.1 fl (80.0-96.0); PLATELET COUNT, AUTOMATED 265 10^3/uL (150-450); RED BLOOD COUNT 3.67 10^6/uL (4.00-5.40)
[2021-02-17 06:13] LABS: ALBUMIN 3.2 GM/DL (3.2-5.2); ALT/SGPT 26 U/L (12-78); BILIRUBIN,TOTAL 0.7 MG/DL (0.2-1.0); BLOOD UREA NITROGEN 23 MG/DL (7-18); CALCIUM LEVEL 8.5 MG/DL (8.8-10.2); CARBON DIOXIDE LEVEL 30 MEQ/L (21-32); CHLORIDE LEVEL 105 MEQ/L (98-107); CREATININE FOR GFR 0.78 MG/DL (0.55-1.30); GLOMERULAR FILTRATION RATE > 60.0 (>45); GLUCOSE, FASTING 131 MG/DL (70-100); POTASSIUM SERUM 4.1 MEQ/L (3.5-5.1); SODIUM LEVEL 141 MEQ/L (136-145); TOTAL PROTEIN 6.2 GM/DL (6.4-8.2)
[2021-02-17] MEDS: ENOXAPARIN 40MG/0.4ML SYRINGE (J1650 PER 10MG) SC SCH ×2 (08:21→08:26)
[2021-02-17] MEDS: PANTOPRAZOLE 40MG VIAL (C9113 PER 1) IV SCH ×2 (08:21→21:06)
[2021-02-17] MEDS: SUCRALFATE 1 GM TAB PO SCH ×2 (08:22→21:05)
[2021-02-17] MEDS: MAGNESIUM OXIDE 400MG TAB (MAG-OX) PO SCH ×2 (08:22→21:05)
[2021-02-17] MEDS: NS 1,000 ML IV SCH ×2 (08:22→18:14)
[2021-02-17] MEDS: MULTIVITAMINS/MINERALS THERAP 1 TAB PO SCH (08:22)
[2021-02-17] MEDS: FAMOTIDINE 20 MG TAB PO SCH (08:22)
[2021-02-17] MEDS: SODIUM CHLORIDE 0.9% INJ 10 ML SYR IV SCH (08:23)
[2021-02-17] MEDS: DOCUSATE SODIUM 100MG CAPSULE PO SCH ×2 (08:23→21:00)
[2021-02-17] MEDS ORDERED: oxyBUTYnin 5 MG TAB PO SCH (09:00)
[2021-02-17 14:00] VITALS: BP 139/81
--- NOTE | 2021-02-17 16:55 | IPNPDOC ---
Text Note Date of Service The patient was seen on 02/17/21. NOTE Subjective: Patient complains of mild nausea in the morning, stated that she feels better today Objective: GENERAL APPEARANCE: NAD HEENT: no scleral icterus, no JVD, EOMI CARDIOVASCULAR: S1S2 LUNGS: CTA ABDOMEN: soft & not tender w palpitation MUSCULOSKELETAL: no cyanosis, no swelling INTEGUMENT: no generalized pallor NEUROLOGICAL: cranial nerve function from 2-12 intact intact, follows commands, speech not dysarthric Assessment and plan Patient is 65 years old female with past history of cancer status post surgery, history of breast carcinoma status post lumpectomy presented to the hospital with nausea and vomiting. According to patient she developed multiple episodes of vomiting during course of chemotherapy. Nausea and vomiting Most likely secondary to chemotherapy Patient expressed her wishes to stop chemotherapy Continue antinausea therapy Leukocytosis Most likely reactive, can be associated chemotherapy Patient afebrile, normotensive. Improved Urinary retention Second straight cath today Will place [place] if patient need 1 more cath Pancreatic ca f/u with oncologist Odilon GARIBAY, I+O VSOdilon I+O Laboratory Tests 02/16/21 22:08 02/17/21 05:00 Vital Signs Date Time Temp Pulse Resp B/P (MAP) Pulse Ox O2 Delivery O2 Flow Rate FiO2 02/17/21 14:00 98.0 67 16 139/81 (100) 94 Room Air I&O- Last 24 Hours up to 6 AM 02/17/21 06:00 Intake Total 3025 ml Output Total 1150 ml Balance 1875 ml LILLIAN CATALAN DO Feb 17, 2021 16:54
[2021-02-17 22:00] VITALS: BP 150/80
[2021-02-18] MEDS: NS 1,000 ML IV SCH (03:42)
[2021-02-18] MEDS: SODIUM CHLORIDE 0.9% INJ 10 ML SYR IV PRN ×2 (05:22→10:17)
[2021-02-18 05:37] LABS: HEMATOCRIT 35.7 % (36.0-47.0); HEMOGLOBIN 11.9 g/dl (12.0-15.5); MEAN CORPUSCULAR HGB CONC 33.3 g/dl (32.0-36.5); MEAN CORPUSCULAR VOLUME 98.9 fl (80.0-96.0); PLATELET COUNT, AUTOMATED 227 10^3/uL (150-450); RED BLOOD COUNT 3.61 10^6/uL (4.00-5.40); WHITE BLOOD COUNT 10.8 10^3/uL (4.0-10.0)
[2021-02-18 06:00] VITALS: BP 142/78
[2021-02-18 06:13] LABS: ALBUMIN 3.2 GM/DL (3.2-5.2); ALT/SGPT 24 U/L (12-78); BLOOD UREA NITROGEN 10 MG/DL (7-18); CALCIUM LEVEL 8.7 MG/DL (8.8-10.2); CARBON DIOXIDE LEVEL 28 MEQ/L (21-32); CHLORIDE LEVEL 105 MEQ/L (98-107); CREATININE FOR GFR 0.61 MG/DL (0.55-1.30); GLOMERULAR FILTRATION RATE > 60.0 (>45); GLUCOSE, FASTING 107 MG/DL (70-100); POTASSIUM SERUM 3.9 MEQ/L (3.5-5.1); SODIUM LEVEL 138 MEQ/L (136-145)
[2021-02-18] MEDS: MAGNESIUM OXIDE 400MG TAB (MAG-OX) PO SCH (08:49)
[2021-02-18] MEDS: MULTIVITAMINS/MINERALS THERAP 1 TAB PO SCH (08:49)
[2021-02-18] MEDS: PANTOPRAZOLE 40MG VIAL (C9113 PER 1) IV SCH (08:50)
[2021-02-18] MEDS: DOCUSATE SODIUM 100MG CAPSULE PO SCH (08:50)
[2021-02-18] MEDS: SUCRALFATE 1 GM TAB PO SCH (08:50)
[2021-02-18] MEDS: FAMOTIDINE 20 MG TAB PO SCH (08:50)
[2021-02-18] MEDS: SODIUM CHLORIDE 0.9% INJ 10 ML SYR IV SCH (08:51)
[2021-02-18] MEDS: ENOXAPARIN 40MG/0.4ML SYRINGE (J1650 PER 10MG) SC SCH (08:51)
[2021-02-18] MEDS ORDERED: PROC10TA4 PO (10:40)
[2021-02-18] MEDS ORDERED: SUCR1TA PO (10:40)
[2021-02-18] MEDS ORDERED: OMEP40CA97 PO (10:40)
[2021-02-18] MEDS ORDERED: ONDA8TAB8 PO (10:40)
--- NOTE | 2021-02-18 13:20 | DS.PDOC ---
Discharge Summary General Date of Admission Feb 16, 2021 at 22:21 Date of Discharge 02/18/21 Discharge Summary PROCEDURES PERFORMED DURING STAY: [None]. ADMITTING DIAGNOSES: Nausea and vomiting Leukocytosis Urinary retention Pancreatic ca DISCHARGE DIAGNOSES: Nausea and vomiting Leukocytosis Urinary retention Pancreatic ca COMPLICATIONS/CHIEF COMPLAINT: Intractable Nausea And Vomiting, Pancreatic Cancer. HISTORY OF PRESENT ILLNESS: Patient is 65 years old female with past history of cancer status post surgery, history of breast carcinoma status post lumpectomy presented to the hospital with nausea and vomiting. According to patient she d eveloped multiple episodes of vomiting during course of chemotherapy HOSPITAL COURSE: During the hospital stay the following issues addressed Nausea and vomiting Most likely secondary to chemotherapy Patient expressed her wishes to stop chemotherapy Continue antinausea therapy Leukocytosis Most likely reactive, can be associated chemotherapy Patient afebrile, normotensive. Improved Urinary retention Patient was treated with catheterization Pancreatic ca f/u with oncologist DISCHARGE MEDICATIONS: Please see below. ALLERGIES: Please see below. PHYSICAL EXAMINATION ON DISCHARGE: VITAL SIGNS: Please see below. GENERAL APPEARANCE: NAD HEENT: no scleral icterus, no JVD, EOMI CARDIOVASCULAR: S1S2 LUNGS: CTA ABDOMEN: soft & not tender w palpitation MUSCULOSKELETAL: no cyanosis, no swelling INTEGUMENT: no generalized pallor NEUROLOGICAL: cranial nerve function from 2-12 intact intact, follows commands, speech not dysarthric LABORATORY DATA: Please see below. PROGNOSIS: Fair ACTIVITY: [As tolerated]. DIET: Regular ITEMS TO FOLLOWUP ON ON OUTPATIENT: Follow-up with oncologist and PCP DISCHARGE CONDITION: [Stable]. TIME SPENT ON DISCHARGE: 40 minutes. Vital Signs/I&Os Vital Signs Date Time Temp Pulse Resp B/P (MAP) Pulse Ox O2 Delivery O2 Flow Rate FiO2 02/18/21 06:00 98.2 61 17 142/78 (99) 94 Room Air I&O- Last 24 Hours up to 6 AM 02/18/21 06:00 Intake Total 1440 ml Output Total 2575 ml Balance -1135 ml Laboratory Data Labs 24H Laboratory Tests 2 02/18/21 05:20: Nucleated Red Blood Cells % (auto) 0.0, Anion Gap 5L, Glomerular Filtration Rate > 60.0, Calcium Level 8.7L, Magnesium Level 2.0, Total Bilirubin 1.0, Aspartate Amino Transf (AST/SGOT) 21, Alanine Aminotransferase (ALT/SGPT) 24, Alkaline Phosphatase 168H, Total Protein 6.0L, Albumin 3.2, Albumin/Globulin Ratio 1.1L CBC/BMP Laboratory Tests 02/18/21 05:20 Discharge Medications Scheduled Anastrozole (Anastrozole) 1 Mg Tablet, 1 TAB PO DAILY Calcium Carbonate/Vitamin D3 (Calcium 500 mg-Vit D3 600 Unit) 1 Each Tablet, 1 EACH PO DAILY, (Reported) Cranberry (Cranberry) 400 Mg Capsule, 400 MG PO DAILY, (Reported) Famotidine (Famotidine) 40 Mg Tablet, 40 MG PO DAILY, (Reported) Magnesium Oxide (Magnesium) 400 Mg Capsule, 400 MG PO BID, (Reported) Multivitamins (Thera M Plus Tablet) 1 Each Tablet, 1 TAB PO DAILY, (Reported) Olanzapine (Olanzapine) 10 Mg Tablet, 10 MG PO ASDIRECTED, (Reported) ON DAYS 2-4 OF CHEMO Oxybutynin Chloride (Oxybutynin Chloride) 5 Mg Tablet, 5 MG PO BID, (Reported) Pantoprazole Sodium (Pantoprazole Sodium) 40 Mg Tablet.dr, 40 MG PO DAILY, (Reported) Sucralfate (Sucralfate) 1 Gm Tablet, 1 GM PO BID Scheduled PRN Ondansetron (Ondansetron Odt) 8 Mg Tab.rapdis, 8 MG PO Q8H PRN for NAUSEA OR VOMITING Prochlorperazine Maleate (Prochlorperazine Maleate) 10 Mg Tablet, 10 MG PO Q6H PRN for NAUSEA Allergies Coded Allergies: No Known Allergies (Unverified , 01/07/19) LILLIAN CATALAN DO Feb 18, 2021 13:19
== END 2021-02-18 14:04 | disposition home or self-care (01) | DRG 392 ==
LOC: M ED 15:49 → EDBD 15:49 → OBSVTOIN 22:21 → M ED INP 22:21 → ENRESERVDT 23:13 → ENRESERVTM 23:13 → M MSPAV 23:49
PROVIDERS: ADMIT Internal Medicine; ATTEND Internal Medicine
DX: R11.2 Nausea with vomiting, unspecified (principal); C25.9 Malignant neoplasm of pancreas, unspecified; D72.829 Elevated white blood cell count, unspecified; R33.9 Retention of urine, unspecified; Z85.3 Personal history of malignant neoplasm of breast; Z79.899 Other long term (current) drug therapy; Z90.81 Acquired absence of spleen; Z92.21 Personal history of antineoplastic chemotherapy

== ENCOUNTER → 2021-02-28 | Outpatient (REF) | payer MEDICARE, MEDICAID ==
[~2021-02-28] MED LIST changes: +OMEP40CA4 PO; +OXYC-517; +PANT40TA29 PO; +SUCR1TA PO; +VITMTA PO
[2021-02-28 15:11] LABS: BASO # 0.1 10^3/uL (0.0-0.2); BASO % 1.3 % (0.0-1.0); EOS # 0.2 10^3/uL (0.0-0.5); EOS % 4.7 % (0.0-3.0); HEMATOCRIT 36.5 % (36.0-47.0); HEMOGLOBIN 12.1 g/dl (12.0-15.5); LYMPH # 1.2 10^3/uL (1.5-5.0); LYMPH % 30.1 % (24.0-44.0); MEAN CORPUSCULAR HEMOGLOBIN 32.2 pg (27.0-33.0); MEAN CORPUSCULAR HGB CONC 33.2 g/dl (32.0-36.5); MEAN CORPUSCULAR VOLUME 97.1 fl (80.0-96.0); MONO # 0.6 10^3/uL (0.0-0.8); MONO % 16.1 % (2.0-8.0); NEUTROPHILS # 1.8 10^3/uL (1.5-8.5); NEUTROPHILS % 47.8 % (36.0-66.0); PLATELET COUNT, AUTOMATED 207 10^3/uL (150-450); RED BLOOD COUNT 3.76 10^6/uL (4.00-5.40); WHITE BLOOD COUNT 3.9 10^3/uL (4.0-10.0)
[2021-02-28 15:21] LABS: ALBUMIN 3.4 GM/DL (3.2-5.2); ALT/SGPT 43 U/L (12-78); BILIRUBIN,TOTAL 0.5 MG/DL (0.2-1.0); BLOOD UREA NITROGEN 11 MG/DL (7-18); CALCIUM LEVEL 9.5 MG/DL (8.8-10.2); CARBON DIOXIDE LEVEL 28 MEQ/L (21-32); CHLORIDE LEVEL 105 MEQ/L (98-107); CREATININE FOR GFR 0.66 MG/DL (0.55-1.30); GLOMERULAR FILTRATION RATE > 60.0 (>45); GLUCOSE, FASTING 111 MG/DL (70-100); SODIUM LEVEL 139 MEQ/L (136-145); TOTAL PROTEIN 6.5 GM/DL (6.4-8.2)
== END ==
LOC: M SFHCPLAZ 09:51
PROVIDERS: ATTEND Physician Assistant
DX: K21.9 Gastro-esophageal reflux disease without esophagitis (principal); D72.829 Elevated white blood cell count, unspecified; C25.9 Malignant neoplasm of pancreas, unspecified; R11.2 Nausea with vomiting, unspecified